=== PATIENT | male | born 1960 | race Caucasian/White ===

== ENCOUNTER → 2016-08-05 | Day surgery (SDC) | payer OTHER ==
[2016-08-02 08:18] VITALS: BMI 50.0
[~2016-08-05] VITALS: Ht 172.7 cm; Wt 148.6 kg
[~2016-08-05] MED LIST: ALBU18002 INH; CITA20TA4 PO; GLC/500 PO; INDO-24 PO; LIDOCAINE HCL 2% 2 ML VIAL (20MG/ML) ONE; LISI-461 PO; MIDAZOLAM HCL 1 MG/ML 2ML VIAL ONE; ONDANSETRON INJ 2 MG/ML 2 ML VIAL ONE; PROPOFOL IV EMULSION 10 MG/ML 20 ML VIAL IV ONE; SODIUM CHLORIDE 0.9% 500ML 500 ML IV ONE
[2016-08-05 10:50] VITALS: Ht 172.7 cm; Wt 148.6 kg
--- NOTE | 2016-08-05 11:49 | Endo History and Physical ---
History & Physical Date of Service: Aug 05, 2016. Chief Complaint: HX OF COLON POLYPS Referring Physician: DR. MCHUGH History of Present Illness H/o colon polyps Past Surgical History Hx Cardiac Surgery: No Hx Internal Defibrillator: No Hx Pacemaker: No Hx Abdominal Surgery: No Hx of Implantable Prosthesis: No Hx Post-Op Nausea and Vomiting: No Hx Cancer Surgery: No Hx Thoracic Surgery: No Hx Orthopedic: No Hx Urinary Tract Surgery: No Family History Polyp Social History Smoking Status: Former Smoker Hx Substance Use: No Hx Alcohol Use: Yes (A COUPLE BEERS/WEEK) Allergies Coded Allergies: No Known Allergies (Unverified , 08/05/16) Current Medications Reported Home Medications Medications Dose Route/Sig Max Daily Dose Days Date Category Dose Instructions Proair Respiclick (Albuterol Sulfate) 108 Mcg/Act Aer 2 Puffs INH Q4H PRN 08/02/16 Reported Indocin (Indomethacin) 50 Mg Cap 50 Mg PO TID PRN 08/02/16 Reported WITH FOOD UNTIL PAIN RESOLVES Citalopram Hydrobromide 20 Mg Tab 1 Tab PO QAM 08/02/16 Reported Zestril (Lisinopril) 10 Mg Tab 10 Mg PO QAM 08/02/16 Reported Glucophage (Metformin Hcl) 500 Mg Tab 500 Mg PO BID 08/02/16 Reported Vital Signs Weight (Kilograms): 148.64 Height (Feet): 5 Height (Inches): 8 Date Time Temp Pulse Resp B/P Pulse Ox O2 Delivery O2 Flow Rate FiO2 08/05/16 10:51 36.7 87 16 140/81 95 Room Air Physical Exam General Appearance: no apparent distress, + obese Respiratory/Chest: Auscultation: breath sounds normal Cardiovascular: Heart Auscultation: RRR Assessment and Plan Ho polyps - cscopy
--- NOTE | 2016-08-05 12:27 | GI REPORT ---
Procedure Date: 08/05/2016 11:15 AM Procedure: Colonoscopy Indications: High risk colon cancer surveillance: Personal history of colonic polyps Medicines: See the Anesthesia note for documentation of the administered medications Complications: No immediate complications. Estimated Blood Loss: Estimated blood loss: none. Procedure: Pre-Anesthesia Assessment: - ASA Grade Assessment: III - A patient with severe systemic disease. After I obtained informed consent, the scope was passed under direct vision. Throughout the procedure, the patient's blood pressure, pulse, and oxygen saturations were monitored continuously. The scope was introduced through the anus and advanced to the cecum, identified by appendiceal orifice and ileocecal valve. The colonoscopy was performed without difficulty. The patient tolerated the procedure well. The quality of the bowel preparation was good. Findings: The perianal and digital rectal examinations were normal. Multiple small and large-mouthed diverticula were found in the sigmoid colon and in the descending colon. Lipoma in ascending colon. Multiple small non bleeding AVM's in ascending colon. The exam was otherwise normal throughout the examined colon. Impression: - Diverticulosis in the sigmoid colon and in the descending colon. - Lipoma. - AVM's as colon. Recommendation: - Discharge patient to home. Repeat exam in 5 years. Arjun Arellano M.D. Arjun Arellano MD 08/05/2016 12:27:54 PM This report has been signed electronically. Note Initiated On: 08/05/2016 11:15 AM I attest to the content of the Intraoperative Record and orders documented therein, exceptions below
--- NOTE | 2016-08-05 12:28 | Discharge Instructions ---
Endoscopy Patient Instructions Date / Procedure(s) Performed Aug 05, 2016. Colonoscopy Allergy Information Coded Allergies: No Known Allergies (Unverified , 08/05/16) Discharge Date / Findings Aug 05, 2016. Diverticulosis, lipoma, AVMs Medication Instructions Stopped Medication(s): INSTRUCTED TO ONLY TAKE LISINOPRIL PRIOR TO PROCEDURE THIS MORNING. Provider Instructions Activity Restrictions - No exercising or heavy lifting for 24 hours. - Do not drink alcohol the day of the procedure. - Do not drive a car or operate machinery until the day after the procedure. - Do not make any important decisions or sign important papers in 24 hours after the procedure. Following Day: - Return to full activity which may include returning to work/school. Diet Start your diet with liquids and light foods (jello, soup, juice, toast). Then eat your usual diet if not nauseated. Treatment For Common After Affects For mild abdominal pain, bloating, or excessive gas: - Rest - Eat lightly - Lie on right side Follow-Up Information Follow-up with DR. MCHUGH as scheduled Anesthesia Information What You Should Know You have had a procedure that required some medicine to reduce anxiety and discomfort. This treatment is called moderate sedation. After receiving the treatment, you may be sleepy, but you will be able to breathe on your own. The effects of the treatment may last for several hours. Follow these instructions along with Activity/Diet recommendations noted above: * Do NOT do anything where dizziness or clumsiness would be dangerous. * Rest quietly at home today, then you can be up and about tomorrow. * Have a responsible person stay with you the rest of today. * You may have had an I.V. today. If so, you may take the dressing off later today. Recommendations Call your doctor if: * Trouble breathing * Continuous vomiting for more than 24 hours * Temperature above 101 degrees * Severe abdominal pain or bloating * Pain not relieved by pain medicine ordered * There is increased drainage or redness from any incision * A large amount of rectal bleeding greater than 2-3 tablespoons. (If you had a polyp/s removed or have hemorrhoids, a small amount of blood - from the rectum is to be expected.) * You have any unanswered questions or concerns. IN THE EVENT OF A SERIOUS EMERGENCY, GO TO THE NEAREST EMERGENCY ROOM Your discharge instructions were prepared by provider Arjun Manley. Patient Instructions Signature Page Zak Pinedo Patient (or Guardian) Signature/Date: I have read and understand the instructions given to me by my caregivers. Caregiver/RN/Doctor Signature/Date: The above-named patient and/or guardian has received patient instructions on this date. + Original Patient Signature Page (only) stays with chart. Please make copy for patient.
--- NOTE | 2016-08-05 12:32 | Anesthesiology Progress Note ---
Anesthesia Post Op Note Date & Time Aug 05, 2016 at 12:33 Vital Signs Pain Intensity: 0 Vital Signs Past 12 Hours Date Time Temp Pulse Resp B/P Pulse Ox O2 Delivery O2 Flow Rate FiO2 08/05/16 12:16 90 16 147/80 98 Room Air 08/05/16 10:51 36.7 87 16 140/81 95 Room Air Notes Mental Status: alert / awake / arousable, participated in evaluation Pt Amnestic to Procedure: Yes Nausea / Vomiting: adequately controlled Pain: adequately controlled Airway Patency, RR, SpO2: stable & adequate BP & HR: stable & adequate Hydration State: stable & adequate Anesthetic Complications: no major complications apparent
[2016-08-05 12:46] VITALS: BP 113/62; PULSE 81; O2SAT 96
== END | disposition home or self-care (01) ==
LOC: C.GI 10:35
PROVIDERS: ATTEND Internal Medicine Gastroenterology
DX: Z12.11 Encounter for screening for malignant neoplasm of colon (principal); Z86.010 Personal history of colon polyps; K57.50 Diverticulosis of both small and large intestine without perforation or abscess without bleeding; D17.79 Benign lipomatous neoplasm of other sites; K55.20 Angiodysplasia of colon without hemorrhage; Z87.891 Personal history of nicotine dependence

== ENCOUNTER → 2017-05-31 | Outpatient (CLI) | payer OTHER ==
[~2017-05-31] MED LIST changes: -LIDOCAINE HCL 2% 2 ML VIAL (20MG/ML) ONE; -MIDAZOLAM HCL 1 MG/ML 2ML VIAL ONE; -ONDANSETRON INJ 2 MG/ML 2 ML VIAL ONE; -PROPOFOL IV EMULSION 10 MG/ML 20 ML VIAL IV ONE; -SODIUM CHLORIDE 0.9% 500ML 500 ML IV ONE
--- NOTE | 2017-05-31 09:59 | DIAGNOSTIC IMAGING REPORT ---
ULTRASOUND GUIDED FINE NEEDLE ASPIRATION OF RIGHT LOBE THYROID NODULE CLINICAL HISTORY: Right lobe thyroid nodule. COMPARISON STUDY: Thyroid ultrasound April 22, 2017. PROCEDURE: Sonography of the thyroid gland demonstrated the 1.2 cm hypoechoic right lobe thyroid nodule. This was targeted for fine needle aspiration. Sonography of the right neck demonstrated a few morphologically benign cervical lymph nodes. No suspicious lymph nodes were identified within the right neck by sonography. Therefore, only the thyroid nodule was targeted. The procedure, risks and benefits were discussed with the patient including the risk of bleeding, infection and injury to adjacent structures. The patient agreed to the procedure and informed written consent was obtained. The procedure was performed by Dr. Kruger following a timeout. Skin of the neck was prepped and draped in sterile fashion and local anesthesia was achieved with 1% lidocaine. Aspiration was difficult given the depth and size of the nodule. However, the needle tip did traverse the lesion on at least 3 passes. 3 25-gauge fine needle aspirations were initially performed. The samples were obtained inadequate by pathology on preliminary review. Therefore, an additional 22-gauge fine needle aspiration using a 3 1/2 inch spinal needle was performed. The sample was also likely nondiagnostic. No additional sampling was performed given 4 passes and difficulty in biopsy. The patient tolerated the procedure well and no immediate complications were evident. IMPRESSION: Ultrasound-guided fine needle aspiration of 1.2 cm right lobe thyroid nodule. Technically difficult procedure given size and depth of the nodule. 4 fine needle aspirations performed. If final pathology is nondiagnostic, consideration could be given to follow-up sonography to ensure stability. Electronically signed by: Roland Kruger M.D. 05/31/2017 9:58 AM Dictated Date/Time: 05/31/2017 9:49 AM
== END | disposition home or self-care (01) ==
LOC: C.ULTR 05-30 09:47
DX: E04.1 Nontoxic single thyroid nodule (principal)

== ENCOUNTER 2021-02-17 20:13 | Observation (INO) ==
[2021-02-17 21:53] LABS: Basophils # (auto) 0.06 K/uL (0-0.2); Basophils % (auto) 0.5 %; Eosinophils # (auto) 0.32 K/uL (0-0.5); Eosinophils % (auto) 2.7 %; Hematocrit (blood only) 49.3 % (42-52); Hemoglobin 16.2 g/dL (14.0-18.0); Immature Granulocytes # (auto) 0.04 K/uL (0.00-0.02); Immature Granulocytes % (auto) 0.3 %; Lymphocytes # (auto) 2.72 K/uL (1.2-3.4); Lymphocytes % (auto) 22.7 %; Mean Corpuscular Hemoglobin 28.7 pg (25-34); Mean Corpuscular Hgb Conc 32.9 g/dL (32-36); Mean Corpuscular Volume 87.3 fL (80-100); Monocytes # (auto) 0.88 K/uL (0.11-0.59); Monocytes % (auto) 7.3 %; Neutrophils # (auto) 7.96 K/uL (1.4-6.5); Neutrophils % (auto) 66.5 %; Platelet Count 286 K/uL (130-400); RDW Standard Deviation 44.9 fL (36.4-46.3); Red Blood Count 5.65 M/uL (4.7-6.1); White Blood Count 11.98 K/uL (4.8-10.8)
[2021-02-17 22:04] LABS: Appearance Urine Clear (Clear); Bilirubin Urine Negative (Negative); Blood Urine Negative (Negative); Color Urine Yellow; Glucose Urine UA 2+ (Negative); Ketones Urine Negative (Negative); Leukocyte Esterase Urine Negative (Negative); Nitrite Urine Negative (Negative); Protein Urine Negative (Negative); Specific Gravity Urine 1.014 (1.000-1.030); Urobilinogen Urine Negative (Negative)
[2021-02-17] MEDS ORDERED: SODIUM CHLORIDE 0.9% 1000ML 1,000 ML IV ONE (22:04)
[2021-02-17 22:10] LABS: INR 1.1 (0.9-1.1); Partial Thromboplastin Time 27.3 Seconds (21.0-31.0); Prothrombin Time 10.9 Seconds (9.0-12.0)
[2021-02-17 22:21] LABS: Alanine Aminotransferase 38 U/L (12-78); Albumin Level 3.5 gm/dl (3.4-5.0); Aspartate Aminotransferase 56 U/L (15-37); BUN Creatinine Ratio 15.8 (10-20); Blood Urea Nitrogen 16 mg/dl (7-18); Calcium 10.1 mg/dl (8.5-10.1); Carbon Dioxide 24 mmol/L (21-32); Chloride 101 mmol/L (98-107); Creatinine Clr Calc Pharmacy 103.4 ml/min; Est GFR (African American) 90.7 ml/min; Est GFR (Non-African American) 78.2 ml/min; Glucose 218 mg/dl (70-99); Magnesium 1.8 mg/dl (1.8-2.4); Potassium 4.2 mmol/L (3.5-5.1); Sodium 133 mmol/L (136-145)
--- NOTE | 2021-02-17 22:24 | Emergency Department Note ---
History of Present Illness General Chief complaint: Altered Mental Status Stated complaint: Altered Mental Status, headache Time Seen by Provider: 02/17/21 21:58 History of Present Illness Maximum Pain Intensity: 4 This is a 60-year-old male presenting to the emergency department for evaluation of headache symptoms that turned into an episode of altered mental status. The patient is diabetic with hypertension. He states that around 5 PM he had a left-sided headache and he laid down for about 1 to 2 hours. When he awoke he had difficulty with speech and understanding his . The patient was able to move extremities at this time and did not have any obvious facial drooping or extremity weakness according to the . The patient then came to the ER for evaluation of his symptoms. His symptoms slowly have improved upon arrival to the ER, and now he is able to speak and understand conversations. The patient still has a very minimal headache, that is also significantly improved. He has had intermittent migraines in the past, but this seems different to his normal symptoms. He does not have any significant family history of stroke or TIA. He is not on blood thinners. He rates his current discomfort a 4/10. The patient is known to me from outside the hospital, and he does appear at his baseline mental status. Home Medications Medication Instructions Recorded Confirmed Type lisinopril 10 mg tablet 10 mg PO QAM 06/13/18 02/17/21 History escitalopram oxalate 10 mg tablet 10 mg PO QAM 02/17/21 02/17/21 History metformin 1,000 mg tablet 1,000 mg PO BIDM 02/17/21 02/17/21 History aspirin 81 mg tablet,delayed 81 mg PO QAM #30 tab 02/19/21 Rx release atorvastatin 40 mg tablet 40 mg PO QAM #30 tab 02/19/21 Rx clopidogrel 75 mg tablet 75 mg PO QAM 30 Days #30 tab 02/19/21 Rx Allergies Allergy/AdvReac Type Severity Reaction Status Date / Time No Known Allergies Allergy Verified 02/17/21 20:51 Past Med/Surg History Medical History (Updated 02/19/21 @ 21:03 by Esteban Teran PA-C) Attention deficit disorder (ADD) Diabetes mellitus, type 2 NIDDM Gout Hyperlipidemia Hypertension Sleep apnea CPAP Thyroid nodule MONITORING Surgical History History of colonoscopy History of tooth extraction Family History Father Family history of diabetes mellitus Grandmother (Paternal) Family history of diabetes mellitus Social History Smoking Status: Never smoker Second Hand Exposure: Yes ( A CHILD); Do You Dip or Chew Tobacco: No; Hx Alcohol Use: No Hx Substance Use: No Preferred Language: Faroese Communication Ability: Effective Exceptional Student Education Aide Required: No Beliefs That Will Affect Care: None Current Living Situation: Spouse and Family Other Information That Helps Us Care for You: No Feels Safe at Home: Yes Assistive Devices: None Review of Systems A total of 10 systems reviewed and were otherwise negative Physical Exam Vital Signs Vital Signs - 24 hr 02/17/21 20:22 02/17/21 20:51 02/17/21 21:45 Temperature 37.0 C Temperature Source Temporal Artery Scan Pulse Rate 104 H Pulse Rate [Apical] 102 H Respiratory Rate 16 18 Respiratory Effort / Characteristics Non-Labored Spontaneous Non-Labored Respiratory Depth Normal Blood Pressure 162/95 H Blood Pressure [Right Arm] 166/105 H 152/87 H Blood Pressure Mean 117 Blood Pressure Mean [Right Arm] 125 108 Blood Pressure Position Sitting Blood Pressure Position [Right Arm] Lying Pulse Oximetry 96 95 Oxygen Delivery Method Room Air Room Air Sepsis Recent Fever Within 48 Hours No Sepsis New/Unexplained Change in Mental Status N/A Sepsis Action Taken by Nursing No Action Required 02/17/21 21:46 Temperature Temperature Source Pulse Rate Pulse Rate [Apical] Respiratory Rate Respiratory Effort / Characteristics Respiratory Depth Blood Pressure Blood Pressure [Right Arm] Blood Pressure Mean Blood Pressure Mean [Right Arm] Blood Pressure Position Blood Pressure Position [Right Arm] Pulse Oximetry 95 Oxygen Delivery Method Room Air Sepsis Recent Fever Within 48 Hours Sepsis New/Unexplained Change in Mental Status Sepsis Action Taken by Nursing VITALS: Vitals are noted on the nurse's note and reviewed by myself. Vital signs stable. GENERAL: Well-developed, well-nourished, white male, who is in no acute distress and resting comfortably. Patient is cooperative with the examination. HEAD: Normocephalic atraumatic. No facial droop. EYES: Pupils equal round and reactive to light and accommodation. Conjunctivae without injection, sclerae without icterus. Extraocular movements intact. NOSE: Patent, turbinates without inflammation or discharge. HEART: Regular rate and rhythm without murmurs gallops or rubs. LUNGS: Clear to auscultation bilaterally without wheezes, rales or rhonchi. No retractions or accessory muscle use. ABDOMEN: Positive normal bowel sounds x 4. Soft, nontender, without masses or organomegaly. No guarding or rebound tenderness. MUSCULOSKELETAL: No muscle atrophy, erythema, or edema noted. Full range of motion in all extremities. No tenderness to palpation. NEURO: Patient was alert and oriented to person place and time. CN II through XII grossly intact. No focal neurological deficits. Deep tendon reflexes 2+ throughout. GCS 15. SKIN: The skin was without rashes, erythema, edema, or bruising. Capillary refill less than 2 seconds. Course Administered Medications Discontinued Medications Aspirin (Aspirin Chew 324 Mg) 324 mg PO NOW [facility] Stop: 02/18/21 01:28 Last Admin: 02/18/21 02:07 Dose: 324 mg Documented by: [id number] Aspirin (Aspirin 81 Mg Ectab) 81 mg PO [facility] Stop: 03/21/21 08:59 Last Admin: 02/19/21 08:30 Dose: 81 mg Documented by: [id number] Admin: 02/18/21 10:40 Dose: 81 mg Documented by: [id number] Atorvastatin Calcium (Atorvastatin 40 Mg Tab) 40 mg PO [facility] Stop: 03/21/21 09:44 Last Admin: 02/19/21 10:33 Dose: 40 mg Documented by: [id number] Clopidogrel Bisulfate (Clopidogrel Bisulfate 75 Mg Tab) 75 mg PO [facility] Stop: 03/21/21 09:44 Last Admin: 02/19/21 10:33 Dose: 75 mg Documented by: [id number] Enoxaparin Sodium (Enoxaparin Inj 40 Mg/0.4 Ml Syr) 40 mg SQ [facility] Stop: 03/20/21 08:59 Last Admin: 02/19/21 08:30 Dose: 40 mg Documented by: [id number] Admin: 02/18/21 08:31 Dose: 40 mg Documented by: [id number] Escitalopram Oxalate (Escitalopram Oxalate 10 Mg Tab) 10 mg PO [facility] Stop: 03/20/21 08:59 Last Admin: 02/19/21 08:30 Dose: 10 mg Documented by: [id number] Admin: 02/18/21 08:33 Dose: 10 mg Documented by: [id number] Sodium Chloride (Nss 1000ml) 1,000 mls @ 999 mls/hr IV .[id number] ONE Stop: 02/17/21 23:04 Last Infusion: 02/17/21 23:34 Dose: 0 mls/hr Documented by: [id number] Admin: 02/17/21 22:33 Dose: 999 mls/hr Documented by: [id number] Sodium Chloride (Nss 1000ml) 1,000 mls @ 75 mls/hr IV .[id number] ONE Stop: 02/18/21 14:55 Last Infusion: 02/18/21 16:51 Dose: 0 mls/hr Documented by: [id number] Admin: 02/18/21 02:09 Dose: 75 mls/hr Documented by: [id number] Lorazepam (Ativan) 0.5 mg in 1 mls @ 1 mls/min IV Q1H PRN PRN Reason: Anxiety/Agitation Stop: 03/20/21 03:23 Last Admin: 02/18/21 05:58 Dose: 1 mls/min Documented by: [id number] Insulin Aspart (Insulin Aspart 100 Units/Ml 3 Ml Pen) 0 units SC ACHS [facility] Stop: 03/20/21 03:59 Last Admin: 02/19/21 12:32 Dose: 7 units Documented by: [id number] Cosigned by: [id number] Admin: 02/19/21 08:33 Dose: 6 units Documented by: [id number] Cosigned by: [id number] Admin: 02/18/21 20:59 Dose: 3 units Documented by: [id number] Cosigned by: [id number] Admin: 02/18/21 18:11 Dose: 7 units Documented by: [id number] Cosigned by: [id number] Admin: 02/18/21 12:32 Dose: 7 units Documented by: [id number] Cosigned by: [id number] Admin: 02/18/21 08:36 Dose: 6 units Documented by: [id number] Cosigned by: [id number] Admin: 02/18/21 04:23 Dose: 3 units Documented by: [id number] Cosigned by: [id number] Insulin Glargine (Insulin Glargine Solostar 100 Units/Ml 3 Ml Pen) 5 units SC NOW STA Stop: 02/18/21 01:31 Last Admin: 02/18/21 02:07 Dose: 5 units Documented by: [id number] Cosigned by: [id number] Insulin Glargine (Insulin Glargine Solostar 100 Units/Ml 3 Ml Pen) 15 units SQ NOW ONE Stop: 02/18/21 20:01 Last Admin: 02/18/21 20:58 Dose: 15 units Documented by: [id number] Cosigned by: [id number] Ioversol (Optiray 320 125ml) 117 ml IV ONCE ONE Stop: 02/17/21 22:42 Last Admin: 02/17/21 22:41 Dose: 117 ml Documented by: [id number] Medical Decision Making Differential Diagnosis Differential includes acute coronary syndrome, myocardial infarction, CVA, TIA, anemia, infection, pneumonia, UTI, pyelonephritis, poor nutrition, dehydration, electrolyte disturbance,hypoglycemia, and others Laboratory Data Result diagrams: 02/18/21 07:30 02/18/21 07:30 Lab Results 02/17/21 02/17/21 02/17/21 Range/Units 20:59 21:42 21:42 WBC 11.98 H (4.8-10.8) K/uL RBC 5.65 (4.7-6.1) M/uL Hgb 16.2 (14.0-18.0) g/dL Hct 49.3 (42-52) % MCV 87.3 (80-100) fL MCH 28.7 (25-34) pg MCHC 32.9 (32-36) g/dL RDW Std Deviation 44.9 (36.4-46.3) fL RDW Coeff of Sp 14.0 (11.5-14.5) % Plt Count 286 (130-400) K/uL MPV 12.0 H (7.4-10.4) fL Immature Gran % (Auto) 0.3 % Neut % (Auto) 66.5 % Lymph % (Auto) 22.7 % Evans % (Auto) 7.3 % Eos % (Auto) 2.7 % Baso % (Auto) 0.5 % Neut # (Auto) 7.96 H (1.4-6.5) K/uL Lymph # (Auto) 2.72 (1.2-3.4) K/uL Evans # (Auto) 0.88 H (0.11-0.59) K/uL Eos # (Auto) 0.32 (0-0.5) K/uL Baso # (Auto) 0.06 (0-0.2) K/uL Immature Gran # (Auto) 0.04 H (0.00-0.02) K/uL PT 10.9 (9.0-12.0) Seconds INR 1.1 (0.9-1.1) APTT 27.3 (21.0-31.0) Seconds PTT Ratio 1.0 Sodium (136-145) mmol/L Potassium (3.5-5.1) mmol/L Chloride (98-107) mmol/L Carbon Dioxide (21-32) mmol/L Anion Gap (3-11) BUN (7-18) mg/dl Creatinine (0.6-1.4) mg/dl Est Cr Clr Drug Dosing ml/min Est GFR ( Amer) ml/min Est GFR (Non-Af Amer) ml/min BUN/Creatinine Ratio (10-20) Glucose (70-99) mg/dl POC Glucose 229 H (70-99) mg/dl Estimat Average Glucose mg/dl Hemoglobin A1c (4.5-5.6) % Calcium (8.5-10.1) mg/dl Magnesium (1.8-2.4) mg/dl Total Bilirubin (0.2-1) mg/dl AST (15-37) U/L ALT (12-78) U/L Alkaline Phosphatase (45-117) U/L Troponin I (0-0.045) ng/ml Total Protein (6.4-8.2) gm/dl Albumin (3.4-5.0) gm/dl Globulin (2.5-4.0) gm/dl Albumin/Globulin Ratio (0.9-2) TSH (0.300-4.500) uIu/ml Specimen Hemolysis Urine Color Urine Appearance (Clear) Urine pH (4.5-7.5) Ur Specific [place] (1.000-1.030) Urine Protein (Negative) Urine Glucose (UA) (Negative) Urine Ketones (Negative) Urine Blood (Negative) Urine Nitrite (Negative) Urine Bilirubin (Negative) Urine Urobilinogen (Negative) Ur Leukocyte Esterase (Negative) Lyme Disease IgG Ab (Negative) Lyme Disease IgM Ab (Negative) COVID-19 Eval Order SARS-CoV-2 (PCR) (Negative) 02/17/21 02/17/21 02/17/21 Range/Units 21:42 21:42 21:42 WBC (4.8-10.8) K/uL RBC (4.7-6.1) M/uL Hgb (14.0-18.0) g/dL Hct (42-52) % MCV (80-100) fL MCH (25-34) pg MCHC (32-36) g/dL RDW Std Deviation (36.4-46.3) fL RDW Coeff of Sp (11.5-14.5) % Plt Count (130-400) K/uL MPV (7.4-10.4) fL Immature Gran % (Auto) % Neut % (Auto) % Lymph % (Auto) % Evans % (Auto) % Eos % (Auto) % Baso % (Auto) % Neut # (Auto) (1.4-6.5) K/uL Lymph # (Auto) (1.2-3.4) K/uL Evans # (Auto) (0.11-0.59) K/uL Eos # (Auto) (0-0.5) K/uL Baso # (Auto) (0-0.2) K/uL Immature Gran # (Auto) (0.00-0.02) K/uL PT (9.0-12.0) Seconds INR (0.9-1.1) APTT (21.0-31.0) Seconds PTT Ratio Sodium 133 L (136-145) mmol/L Potassium 4.2 (3.5-5.1) mmol/L Chloride 101 (98-107) mmol/L Carbon Dioxide 24 (21-32) mmol/L Anion Gap 8.0 (3-11) BUN 16 (7-18) mg/dl Creatinine 1.04 (0.6-1.4) mg/dl Est Cr Clr Drug Dosing 103.4 ml/min Est GFR ( Amer) 90.7 ml/min Est GFR (Non-Af Amer) 78.2 ml/min BUN/Creatinine Ratio 15.8 (10-20) Glucose 218 H (70-99) mg/dl POC Glucose (70-99) mg/dl Estimat Average Glucose 235 mg/dl Hemoglobin A1c 9.8 H (4.5-5.6) % Calcium 10.1 (8.5-10.1) mg/dl Magnesium 1.8 (1.8-2.4) mg/dl Total Bilirubin 0.3 (0.2-1) mg/dl AST 56 H (15-37) U/L ALT 38 (12-78) U/L Alkaline Phosphatase 139 H (45-117) U/L Troponin I < 0.015 (0-0.045) ng/ml Total Protein 7.9 (6.4-8.2) gm/dl Albumin 3.5 (3.4-5.0) gm/dl Globulin 4.4 H (2.5-4.0) gm/dl Albumin/Globulin Ratio 0.8 L (0.9-2) TSH 2.840 (0.300-4.500) uIu/ml Specimen Hemolysis Urine Color Yellow Urine Appearance Clear (Clear) Urine pH 5.0 (4.5-7.5) Ur Specific [place] 1.014 (1.000-1.030) Urine Protein Negative (Negative) Urine Glucose (UA) 2+ H (Negative) Urine Ketones Negative (Negative) Urine Blood Negative (Negative) Urine Nitrite Negative (Negative) Urine Bilirubin Negative (Negative) Urine Urobilinogen Negative (Negative) Ur Leukocyte Esterase Negative (Negative) Lyme Disease IgG Ab (Negative) Lyme Disease IgM Ab (Negative) COVID-19 Eval Order SARS-CoV-2 (PCR) (Negative) 02/17/21 02/17/21 02/17/21 Range/Units 22:24 22:26 22:26 WBC (4.8-10.8) K/uL RBC (4.7-6.1) M/uL Hgb (14.0-18.0) g/dL Hct (42-52) % MCV (80-100) fL MCH (25-34) pg MCHC (32-36) g/dL RDW Std Deviation (36.4-46.3) fL RDW Coeff of Sp (11.5-14.5) % Plt Count (130-400) K/uL MPV (7.4-10.4) fL Immature Gran % (Auto) % Neut % (Auto) % Lymph % (Auto) % Evans % (Auto) % Eos % (Auto) % Baso % (Auto) % Neut # (Auto) (1.4-6.5) K/uL Lymph # (Auto) (1.2-3.4) K/uL Evans # (Auto) (0.11-0.59) K/uL Eos # (Auto) (0-0.5) K/uL Baso # (Auto) (0-0.2) K/uL Immature Gran # (Auto) (0.00-0.02) K/uL PT (9.0-12.0) Seconds INR (0.9-1.1) APTT (21.0-31.0) Seconds PTT Ratio Sodium (136-145) mmol/L Potassium (3.5-5.1) mmol/L Chloride (98-107) mmol/L Carbon Dioxide (21-32) mmol/L Anion Gap (3-11) BUN (7-18) mg/dl Creatinine (0.6-1.4) mg/dl Est Cr Clr Drug Dosing ml/min Est GFR ( Amer) ml/min Est GFR (Non-Af Amer) ml/min BUN/Creatinine Ratio (10-20) Glucose (70-99) mg/dl POC Glucose (70-99) mg/dl Estimat Average Glucose mg/dl Hemoglobin A1c (4.5-5.6) % Calcium (8.5-10.1) mg/dl Magnesium (1.8-2.4) mg/dl Total Bilirubin (0.2-1) mg/dl AST (15-37) U/L ALT (12-78) U/L Alkaline Phosphatase (45-117) U/L Troponin I (0-0.045) ng/ml Total Protein (6.4-8.2) gm/dl Albumin (3.4-5.0) gm/dl Globulin (2.5-4.0) gm/dl Albumin/Globulin Ratio (0.9-2) TSH (0.300-4.500) uIu/ml Specimen Hemolysis Urine Color Urine Appearance (Clear) Urine pH (4.5-7.5) Ur Specific [place] (1.000-1.030) Urine Protein (Negative) Urine Glucose (UA) (Negative) Urine Ketones (Negative) Urine Blood (Negative) Urine Nitrite (Negative) Urine Bilirubin (Negative) Urine Urobilinogen (Negative) Ur Leukocyte Esterase (Negative) Lyme Disease IgG Ab Negative (Negative) Lyme Disease IgM Ab Negative (Negative) COVID-19 Eval Order Covid19 at [facility] SARS-CoV-2 (PCR) NEGATIVE (Negative) Imaging Data Radiologist's Impression: Head CT 02/17/21 22:[address] DOSE: HISTORY: Stroke like symptoms. TECHNIQUE: Multiaxial CT images of the head were performed without the use of intravenous contrast. Automated exposure control was utilized for this study. A dose lowering technique was utilized adhering to the principles of ALARA. Comparison: None. Findings: Mild mucosal thickening within the maxillary sinuses. The mastoid air cells are clear. The calvarium and skull base are intact. The ventricles and sulci are within normal limits. There is no mass, hematoma, midline shift, or acute infarct. Impression: No acute intracranial abnormality. ACT 112: Negative or not required by law. Electronically signed by: Hilario Peters M.D. 02/18/2021 7:11 AM Head CTA 02/17/21 22:07 HEAD & NECK CTA HISTORY: Stroke Like Symptoms TECHNIQUE: Multiaxial CT images of the head were performed following the intravenous administration of contrast to evaluate the major cerebral vessels. Multiaxial CT images of the neck were also performed following the intravenous administration of contrast to evaluate the major cervical vessels. Maximum intensity projection images were also obtained. A dose lowering technique was utilized adhering to the principles of ALARA. COMPARISON: None. FINDINGS: There is no mass, hematoma, midline shift, or acute infarct. Visualized intracranial internal carotid arteries, distal vertebral arteries, and basilar artery are widely patent. There is no significant stenosis, occlusion, or aneurysm seen within the bilateral ACAs, MCAs, or motorcycle sales associate. The major dural venous sinuses are patent. Mild calcified plaque within the bilateral carotid siphons. The aortic arch and proximal great vessels are widely patent. There is no significant stenosis, occlusion, or dissection identified within the bilateral common carotid, internal carotid, or vertebral arteries. IMPRESSION: 1. No significant stenosis, occlusion, or aneurysm within the [place]. 2. No significant stenosis, occlusion, or dissection identified within the carotid or vertebral arteries. ACT 112: Negative or not required by law. Electronically signed by: Hilario Peters M.D. 02/18/2021 7:16 AM Neck CTA 02/17/21 22:07 HEAD & NECK CTA HISTORY: Stroke Like Symptoms TECHNIQUE: Multiaxial CT images of the head were performed following the intravenous administration of contrast to evaluate the major cerebral vessels. Multiaxial CT images of the neck were also performed following the intravenous administration of contrast to evaluate the major cervical vessels. Maximum intensity projection images were also obtained. A dose lowering technique was utilized adhering to the principles of ALARA. COMPARISON: None. FINDINGS: There is no mass, hematoma, midline shift, or acute infarct. Visualized intracranial internal carotid arteries, distal vertebral arteries, and basilar artery are widely patent. There is no significant stenosis, occlusion, or aneur ysm seen within the bilateral ACAs, MCAs, or motorcycle sales associate. The major dural venous sinuses are patent. Mild calcified plaque within the bilateral carotid siphons. The aortic arch and proximal great vessels are widely patent. There is no significant stenosis, occlusion, or dissection identified within the bilateral common carotid, internal carotid, or vertebral arteries. IMPRESSION: 1. No significant stenosis, occlusion, or aneurysm within the [place]. 2. No significant stenosis, occlusion, or dissection identified within the carotid or vertebral arteries. ACT 112: Negative or not required by law. Electronically signed by: Hilario Peters M.D. 02/18/2021 7:16 AM ECG Data Attestation: I personally reviewed and interpreted this ECG as follows: Additional Comments: Sinus rhythm with 1st degree A-V block @[address] elevation Otherwise normal ECG When compared with ECG of 28-MAR-2010 00:47, No significant change was found MDM Narrative Physical exam and history were performed. Nursing notes, EMR, and Medication List were personally reviewed. Patient appears to have an episode of aphasia around the time of headache symptoms. Symptoms have now improved upon arrival to the ER. IV access was established and labs were obtained. The patient was hydrated with normal saline sent to CT scan for further imaging. An order was placed for continuous cardiac monitoring. The monitor shows a rate of 80 with normal sinus rhythm. The patient's blood work is as above and was reviewed. The patient does not have a significantly elevated white blood cell count, gross anemia, bandemia, or significant electrolyte imbalance. INR is 1.1. Troponin x1 is negative. Transaminases are not diagnostic. Glucose is elevated but not indicative of DKA. TSH shows euthyroid state. Urine is with glucose but no evidence of infection. Lyme and Covid are negative. CT/CTA of the head and neck were performed and do not show obvious acute process per my and radiology interpretation. The patient remained in stable condition throughout his ER stay and did not have any return or worsening of symptoms. The patient does have multiple comorbidities and it is difficult to exclude TIA versus atypical migraine true pan. I did voice my concerns with the patient, and he is comfortable with staying in the hospital for further management. The case was discussed with the on-call hospitalist who agreed to evaluate him here in the department. Please see their dictation for further patient course, plan, and disposition. The chart was completed utilizing [employer] Speech Voice Recognition Software. Grammatical errors, random word insertions, pronoun errors, and incomplete sentences are an occasional consequence of this system due to software limitations, ambient noise, and hardware issues. Any formal questions or concerns about the content, text, or information contained within the body of this dictation should be directly addressed to the provider for clarification. . Impression & Plan Altered mental status, Aphasia, Headache Discharge Plan Visit Data Chief Complaint: Altered Mental Status Stated Complaint: Altered Mental Status, headache ED Provider: Solis Enriquez ED Midlevel Provider: Esteban Teran Discharge Problem: Altered mental status, Aphasia, Headache Patient Disposition: Admitted As Inpatient Discharge Instructions Interventions: ED Discharge Assessment Last Done: 02/18/21 02:28
[2021-02-17 22:29] LABS: Albumin Globulin Ratio 0.8 (0.9-2); Alkaline Phosphatase 139 U/L (45-117); Bilirubin,Total 0.3 mg/dl (0.2-1); Globulin 4.4 gm/dl (2.5-4.0); Total Protein 7.9 gm/dl (6.4-8.2); Troponin I < 0.015 ng/ml (0-0.045)
[2021-02-17] MEDS ORDERED: OPTIRAY 320 125ml IV ONE (22:41)
[2021-02-17 23:26] LABS: Lyme Ab IgG w/WB Rflx Negative (Negative); Lyme Ab IgM w/WB Rflx Negative (Negative)
[2021-02-18] MEDS ORDERED: ASPIRIN CHEW 324 MG PO STA (01:27)
--- NOTE | 2021-02-18 01:28 | History & Physical Report ---
Date of Service February 18, 2021 Assessment & Plan (1) Aphasia: Plan: Transient symptoms TIA given risk factors/old CVA on CAT scan versus complicated migraine given headache complaints hypertension, slight elevated DM2 on oral meds, suboptimal control as of recent hemoglobin A1c of 7.01 April 2020 NILSA on CPAP ADD, mood disorder. Patient stopped Adderall about a week ago. Patient psychiatrist contemplating alternative medication that would be covered by [facility] insurance. OBS Medical telemetry Neurochecks Aspirin for secondary stroke prevention Permissive hypertension until stroke ruled out MRI brain, TTE, lipid profile for stroke work-up Neurology consult Re: Transient aphasia Basal insulin, ISS BG goal 1 10-1 40, carb count coverage, update hemoglobin A1c DVT prophylaxis with Lovenox subcu Full code Patient's requesting update providers. Ms. Brit Pinedo, contact #[phone]. Text document was generated using Comic Reply voice recognition software. It may contain grammatical or spelling errors. Kindly contact undersigned for clarification of any documentation item in question. History of Present Illness Chief Complaint: Headache, trouble getting words out Primary Care Provider: Jann Delgado, History obtained from patient, family, and records. Medical history significant for hypertension, DM2 on oral meds, NILSA on CPAP, migraine, ADD, mood disorder. Yesterday afternoon patient noted achy left-sided headache symptoms somewhat different from usual migraine attack. Patient felt dazed. Computer images look different as per patient. Patient had trouble getting words out. No prior episodes. Usual migraine attacks associated with bright lights about 2 times a year in frequency in the last 10 years. Usual precipitant is stress and fatigue. Migraine attacks go away with rest as per patient. Patient denies chest pain, S OB. Improved symptoms upon arrival at the ER. 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 Allergies Allergy/AdvReac Type Severity Reaction Status Date / Time No Known Allergies Allergy Verified 02/17/21 20:51 Home Medications Medication Instructions Recorded Confirmed Type lisinopril 10 mg tablet 10 mg PO QAM 06/13/18 02/17/21 History escitalopram oxalate 10 mg tablet 10 mg PO QAM 02/17/21 02/17/21 History metformin 1,000 mg tablet 1,000 mg PO BIDM 02/17/21 02/17/21 History Past Med/Surg History Medical History (Updated 02/18/21 @ 03:59 by Darien Blanc MD) Attention deficit disorder (ADD) Diabetes mellitus, type 2 NIDDM Gout Hyperlipidemia Hypertension Sleep apnea CPAP Thyroid nodule MONITORING Surgical History History of colonoscopy History of tooth extraction Family History Father Family history of diabetes mellitus Grandmother (Paternal) Family history of diabetes mellitus Social History Smoking Status: Never smoker Second Hand Exposure: Yes ( A CHILD); Do You Dip or Chew Tobacco: No; Hx Alcohol Use: No Hx Substance Use: No Preferred Language: Namibian Communication Ability: Effective Neighborhood Worker Required: No Beliefs That Will Affect Care: None Current Living Situation: Spouse and Family Other Information That Helps Us Care for You: No Feels Safe at Home: Yes Assistive Devices: None Review of Systems Review of Systems: As per HPI, all 10 systems reviewed, all other ROS negative Physical Exam Physical Exam: GENERAL: Comfortable, pleasant, morbidly obese, no respiratory distress SKIN: Normal color, warm HEENT: Alopecia, Artesian palpebral conjunctivae, no ptosis, moist buccal mucosa NECK : Supple, short neck, no tenderness CHEST : CTA, no tenderness HEART : RRR, no obvious murmurs ABDOMEN: distention, nontender EXTREMITIES : No LE swelling/tenderness, no other conspicuous deformities noted NEUROLOGIC : Coherent, no facial asymmetry, no other gross focality Results & Data Results & Data ([facility]) Vital Signs (Past 12 Hours) Vital Signs Temp Pulse Pulse Resp BP BP Pulse Ox 02/18/21 00:15 87 16 127/78 93 02/17/21 21:46 95 02/17/21 21:45 152/87 H 02/17/21 20:51 102 H 18 166/105 H 95 02/17/21 20:22 37.0 C 104 H 16 162/95 H 96 Laboratory Results Laboratory Results WBC 11.98 K/uL (4.8-10.8) H 02/17/21 21:42 RBC 5.65 M/uL (4.7-6.1) 02/17/21 21:42 Hgb 16.2 g/dL (14.0-18.0) 02/17/21 21:42 Hct 49.3 % (42-52) 02/17/21 21:42 MCV 87.3 fL (80-100) 02/17/21 21:42 MCH 28.7 pg (25-34) 02/17/21 21:42 MCHC 32.9 g/dL (32-36) 02/17/21 21:42 RDW Std Deviation 44.9 fL (36.4-46.3) 02/17/21 21:42 RDW Coeff of Sp 14.0 % (11.5-14.5) 02/17/21 21:42 Plt Count 286 K/uL (130-400) 02/17/21 21:42 MPV 12.0 fL (7.4-10.4) H 02/17/21 21:42 Immature Gran % (Auto) 0.3 % 02/17/21 21:42 Neut % (Auto) 66.5 % 02/17/21 21:42 Lymph % (Auto) 22.7 % 02/17/21 21:42 Stearns % (Auto) 7.3 % 02/17/21 21:42 Eos % (Auto) 2.7 % 02/17/21 21:42 Baso % (Auto) 0.5 % 02/17/21 21:42 Neut # (Auto) 7.96 K/uL (1.4-6.5) H 02/17/21 21:42 Lymph # (Auto) 2.72 K/uL (1.2-3.4) 02/17/21 21:42 Stearns # (Auto) 0.88 K/uL (0.11-0.59) H 02/17/21 21:42 Eos # (Auto) 0.32 K/uL (0-0.5) 02/17/21 21:42 Baso # (Auto) 0.06 K/uL (0-0.2) 02/17/21 21:42 Immature Gran # (Auto) 0.04 K/uL (0.00-0.02) H 02/17/21 21:42 PT 10.9 Seconds (9.0-12.0) 02/17/21 21:42 INR 1.1 (0.9-1.1) 02/17/21 21:42 APTT 27.3 Seconds (21.0-31.0) 02/17/21 21:42 PTT Ratio 1.0 02/17/21 21:42 Sodium 133 mmol/L (136-145) L 02/17/21 21:42 Potassium 4.2 mmol/L (3.5-5.1) 02/17/21 21:42 Chloride 101 mmol/L (98-107) 02/17/21 21:42 Carbon Dioxide 24 mmol/L (21-32) 02/17/21 21:42 Anion Gap 8.0 (3-11) 02/17/21 21:42 BUN 16 mg/dl (7-18) 02/17/21 21:42 Creatinine 1.04 mg/dl (0.6-1.4) 02/17/21 21:42 Est Cr Clr Drug Dosing 103.4 ml/min 02/17/21 21:42 Est GFR ( Amer) 90.7 ml/min 02/17/21 21:42 Est GFR (Non-Af Amer) 78.2 ml/min 02/17/21 21:42 BUN/Creatinine Ratio 15.8 (10-20) 02/17/21 21:42 Glucose 218 mg/dl (70-99) H 02/17/21 21:42 POC Glucose 229 mg/dl (70-99) H 02/17/21 20:59 Calcium 10.1 mg/dl (8.5-10.1) 02/17/21 21:42 Magnesium 1.8 mg/dl (1.8-2.4) 02/17/21 21:42 Total Bilirubin 0.3 mg/dl (0.2-1) 02/17/21 21:42 AST 56 U/L (15-37) H 02/17/21 21:42 ALT 38 U/L (12-78) 02/17/21 21:42 Alkaline Phosphatase 139 U/L (45-117) H 02/17/21 21:42 Troponin I < 0.015 ng/ml (0-0.045) 02/17/21 21:42 Total Protein 7.9 gm/dl (6.4-8.2) 02/17/21 21:42 Albumin 3.5 gm/dl (3.4-5.0) 02/17/21 21:42 Globulin 4.4 gm/dl (2.5-4.0) H 02/17/21 21:42 Albumin/Globulin Ratio 0.8 (0.9-2) L 02/17/21 21:42 TSH 2.840 uIu/ml (0.300-4.500) 02/17/21 21:42 Specimen Hemolysis 02/17/21 21:42 Urine Color Yellow 02/17/21 21:42 Urine Appearance Clear (Clear) 02/17/21 21:42 Urine pH 5.0 (4.5-7.5) 02/17/21 21:42 Ur Specific [place] 1.014 (1.000-1.030) 02/17/21 21:42 Urine Protein Negative (Negative) 02/17/21 21:42 Urine Glucose (UA) 2+ (Negative) H 02/17/21 21:42 Urine Ketones Negative (Negative) 02/17/21 21:42 Urine Blood Negative (Negative) 02/17/21 21:42 Urine Nitrite Negative (Negative) 02/17/21 21:42 Urine Bilirubin Negative (Negative) 02/17/21 21:42 Urine Urobilinogen Negative (Negative) 02/17/21 21:42 Ur Leukocyte Esterase Negative (Negative) 02/17/21 21:42 Lyme Disease IgG Ab Negative (Negative) 02/17/21 22:24 Lyme Disease IgM Ab Negative (Negative) 02/17/21 22:24 COVID-19 Eval Order Covid19 at [facility] 02/17/21 22:26 SARS-CoV-2 (PCR) NEGATIVE (Negative) 02/17/21 22:[address] head initial read: Mild volume loss. Old left basal ganglia lacunar infarct. No mass, hemorrhage or acute infarct. No acute findings. CTA head initial read: Minimal atherosclerosis of the cavernous carotids. MCAs and ACAs are intact. The vertebrals, basilar and the cda teacher are intact. No acute findings. CTA neck initial read: Aortic arch intact. Right carotids intact. Left carotids are intact. Vertebral arteries are intact. Upper lung espinosa are clear. No acute findings. EKG as per my interpretation : Rate 90, NSR, LAD, LAFB, 1 AVB, no ischemia
[2021-02-18] MEDS ORDERED: INSULIN GLARGINE SOLOSTAR 100 UNITS/ML 3 ML PEN SC STA (01:30)
[2021-02-18] MEDS ORDERED: SODIUM CHLORIDE 0.9% 1000ML 1,000 ML IV ONE (01:36)
[2021-02-18] MEDS ORDERED: CARBOHYDRATES FOR HYPOGLYCEMIA PO PRN (03:24)
[2021-02-18] MEDS ORDERED: ACETAMINOPHEN 325 MG TAB PO PRN (03:24)
[2021-02-18] MEDS ORDERED: LORazepam 0.5 MG/1 ML VIAL IV PRN (03:24)
[2021-02-18] MEDS ORDERED: DEXTROSE 50% 50 ML SYRINGE IV PRN (03:24)
[2021-02-18] MEDS ORDERED: GLUCAGON FOR INJ 1 MG VIAL SQ PRN (03:24)
[2021-02-18] MEDS ORDERED: PROMETHAZINE HCL 12.5 MG in SODIUM CHLORIDE 0.9% 50 ML IV PRN (03:24)
[2021-02-18] MEDS ORDERED: traMADol HCL 50 MG TABLET PO PRN (03:24)
[2021-02-18] MEDS ORDERED: GLUCOSE 40% GEL 15 GM TUBE PO PRN (03:24)
[2021-02-18] MEDS ORDERED: GLUCOSE 10 TABS/TUBE PO PRN (03:24)
[2021-02-18] MEDS: INSULIN ASPART 100 UNITS/ML 3 ML PEN SC SCH ×5 (04:23→20:59)
--- NOTE | 2021-02-18 07:13 | CT Scan Report ---
HEAD CT NONCONTRAST CT DOSE: HISTORY: Stroke like symptoms. TECHNIQUE: Multiaxial CT images of the head were performed without the use of intravenous contrast. A utomated exposure control was utilized for this study. A dose lowering technique was utilized adheri ng to the principles of ALARA. Comparison: None. Findings: Mild mucosal thickening within the maxillary sinuses. The mastoid air cells are clear. The calvarium and skull base are intact. The ventricles and sulci are within normal limits. There is no m ass, hematoma, midline shift, or acute infarct. Impression: No acute intracranial abnormality. ACT 112: Negative or not required by law. Electronically signed by: Hilario Peters M.D. 02/18/2021 7:11 AM
--- NOTE | 2021-02-18 07:17 | CT Scan Report ---
HEAD & NECK CTA HISTORY: Stroke Like Symptoms TECHNIQUE: Multiaxial CT images of the head were performed following the intravenous administration o f contrast to evaluate the major cerebral vessels. Multiaxial CT images of the neck were also perform ed following the intravenous administration of contrast to evaluate the major cervical vessels. Maxim um intensity projection images were also obtained. A dose lowering technique was utilized adhering to the principles of ALARA. COMPARISON: None. FINDINGS: There is no mass, hematoma, midline shift, or acute infarct. Visualized intracranial internal carotid arteries, distal vertebral arteries, and basilar artery are widely patent. There is no significant s tenosis, occlusion, or aneurysm seen within the bilateral ACAs, MCAs, or hypo dipper. The major dural venous sinuses are patent. Mild calcified plaque within the bilateral carotid siphons. The aortic arch and proximal great vessels are widely patent. There is no significant stenosis, occ lusion, or dissection identified within the bilateral common carotid, internal carotid, or vertebral arteries. IMPRESSION: 1. No significant stenosis, occlusion, or aneurysm within the [place] of [place]. 2. No significant stenosis, occlusion, or dissection identified within the carotid or vertebral arter ies. ACT 112: Negative or not required by law. Electronically signed by: Hilario Peters M.D. 02/18/2021 7:16 AM
--- NOTE | 2021-02-18 07:17 | CT Scan Report ---
HEAD & NECK CTA HISTORY: Stroke Like Symptoms TECHNIQUE: Multiaxial CT images of the head were performed following the intravenous administration o f contrast to evaluate the major cerebral vessels. Multiaxial CT images of the neck were also perform ed following the intravenous administration of contrast to evaluate the major cervical vessels. Maxim um intensity projection images were also obtained. A dose lowering technique was utilized adhering to the principles of ALARA. COMPARISON: None. FINDINGS: There is no mass, hematoma, midline shift, or acute infarct. Visualized intracranial internal carotid arteries, distal vertebral arteries, and basilar artery are widely patent. There is no significant s tenosis, occlusion, or aneurysm seen within the bilateral ACAs, MCAs, or fisher pot. The major dural venous sinuses are patent. Mild calcified plaque within the bilateral carotid siphons. The aortic arch and proximal great vessels are widely patent. There is no significant stenosis, occ lusion, or dissection identified within the bilateral common carotid, internal carotid, or vertebral arteries. IMPRESSION: 1. No significant stenosis, occlusion, or aneurysm within the [place] of [place]. 2. No significant stenosis, occlusion, or dissection identified within the carotid or vertebral arter ies. ACT 112: Negative or not required by law. Electronically signed by: Hilario Peters M.D. 02/18/2021 7:16 AM
--- NOTE | 2021-02-18 07:35 | Magnetic Resonance Report ---
MRI OF THE BRAIN WITHOUT IV CONTRAST CLINICAL HISTORY: Transient ischemic attack. COMPARISON STUDY: CT of the brain dated 02/17/2021. TECHNIQUE: MRI of the brain was performed utilizing various T1 and T2-weighted sequences in the axial , sagittal, and coronal planes. IV contrast was not administered for this examination. FINDINGS: Brain parenchyma: There is minimal microangiopathic change. The brain parenchyma is otherwise normal in appearance. There is no hemorrhage or mass effect. There is no restricted diffusion to suggest acu te ischemia. Jiang-white matter differentiation is preserved. No extra-axial fluid collection is seen. The cerebellar tonsils are normal in configuration. Ventricles, sulci, and cisterns: Normal in configuration. Pituitary and sella: Partially empty sella is incidentally noted. Intracranial vasculature: Normal flow voids are maintained at the skull base. Orbits: The bony orbits are grossly intact. Orbital contents are normal in appearance. Sinuses and mastoids: Mild mucosal thickening is noted in the maxillary antra. There is trace mucosal thickening within the ethmoid sinuses. The mastoid air cells are clear. Calvarium: Unremarkable. Cervical cord: Partially visualized cervical spinal cord is normal in morphology and signal intensity . IMPRESSION: No acute intracranial abnormality. ACT 112: Negative or not required by law. Electronically signed by: Darius Rapp M.D. 02/18/2021 7:34 AM
[2021-02-18 07:36] LABS: Estimated Average Glucose 235 mg/dl; Hemoglobin A1C 9.8 % (4.5-5.6)
[2021-02-18 08:16] LABS: Basophils # (auto) 0.04 K/uL (0-0.2); Basophils % (auto) 0.4 %; Eosinophils # (auto) 0.28 K/uL (0-0.5); Eosinophils % (auto) 2.7 %; Hematocrit (blood only) 45.4 % (42-52); Hemoglobin 14.9 g/dL (14.0-18.0); Immature Granulocytes # (auto) 0.03 K/uL (0.00-0.02); Immature Granulocytes % (auto) 0.3 %; Lymphocytes % (auto) 19.3 %; Mean Corpuscular Hemoglobin 28.8 pg (25-34); Mean Corpuscular Hgb Conc 32.8 g/dL (32-36); Mean Corpuscular Volume 87.6 fL (80-100); Monocytes # (auto) 0.69 K/uL (0.11-0.59); Monocytes % (auto) 6.7 %; Neutrophils # (auto) 7.33 K/uL (1.4-6.5); Neutrophils % (auto) 70.6 %; Platelet Count 252 K/uL (130-400); RDW Standard Deviation 45.2 fL (36.4-46.3); Red Blood Count 5.18 M/uL (4.7-6.1); White Blood Count 10.37 K/uL (4.8-10.8)
[2021-02-18] MEDS: ENOXAPARIN INJ 40 MG/0.4 ML SYR SQ SCH (08:31)
[2021-02-18] MEDS: ESCITALOPRAM OXALATE 10 MG TAB PO SCH (08:33)
[2021-02-18 08:59] LABS: BUN Creatinine Ratio 14.2 (10-20); Calcium 9.3 mg/dl (8.5-10.1); Creatinine Clr Calc Pharmacy 114.2 ml/min; Est GFR (African American) 103.1 ml/min; Est GFR (Non-African American) 88.9 ml/min
[2021-02-18] MEDS: ASPIRIN 81 MG ECTAB PO SCH (10:40)
--- NOTE | 2021-02-18 18:33 | Hospitalist Progress Note ---
Date of Service February 18, 2021 Assessment & Plan (1) Aphasia: Plan: Possible related to TIA vs migraine CT head showed no acute intracranial abnormality CTA head and neck showed no significant stenosis, occlusion, or aneurysm within the [place] of [place]. No significant stenosis, occlusion, or dissection identified within the carotid or vertebral arteries. MRI brain showed no acute intracranial abnormality. 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 Ms. Brit Pinedo, contact #[phone]. Admission and Anticipated Discharge Date Admission Date: February 18, 2021 Subjective Pt was seen and examined for follow up of stroke like symptoms Lying in bed with no distress. Pt said that he feels ok He said that he is back to his baseline and does not have any more migraine Denies any chest pain, palpitation, dizziness and SOB Physical Exam Physical Exam: General- No acute distress Head- atraumatic Eyes- PERRL, EOMI, ENT- oropharynx clear Neck- supple, no JVD Lungs- clear to auscultation Heart- regular rhythm; no murmur Abdomen- normal bowel sounds, soft, nontender Extremities- no calf tenderness Neuro- alert, oriented x 3; PERRL, EOMI; no facial palsy; no dysarthria Skin- warm & dry Results & Data Results & Data ([facility]) Vital Signs (Past 12 Hours) Vital Signs Temp Pulse Resp BP Pulse Ox 02/18/21 15:08 36.7 C 91 H 18 156/87 H 94 02/18/21 11:35 36.9 C 86 18 91/56 L 95 02/18/21 07:48 36.6 C 86 16 124/70 96
[2021-02-18] MEDS ORDERED: INSULIN GLARGINE SOLOSTAR 100 UNITS/ML 3 ML PEN SQ ONE (20:00)
--- NOTE | 2021-02-19 07:42 | Consultation Report ---
DATE OF CONSULTATION: 02/18/2021. REASON FOR CONSULTATION: Possible transient ischemic attack. HISTORY OF PRESENT ILLNESS: The patient is a 61-year-old right-handed male with diabetes and hyperte nsion. On this background, he was in his usual state of health. Yesterday, he felt a headache that felt migrainous on the left side of his head that was throbbing and accompanied some blurred vision. He laid down for a nap and upon awakening in the evening, he still felt unwell with the headache and his noted ongoing difficulty with language. He was brought to the Emergency Room. Neurologic symptoms lasted at least an hour and a half or two hours. The headache lasted longer. There was oth erwise no change in vision, double vision, vertigo, facial droop or dysarthria, unilateral weakness, numbness or change in gait. He has been otherwise well, has not had any head or neck injury, chiropr actic manipulation of the neck, medical or dental procedures. He has had some diarrhea over the last several days. About a month or more ago he had an exposure to COVID from one of his children, altho ugh he was tested and tested negative. He was vaccinated. His psychiatrist stopped his Adderall abo ut a week ago to contemplate a medication that would be covered by the patient's insurance. At [facility], the patient does not take any antiplatelet therapy and is not on a statin. Over time, rarely he has throbbing headaches, on several occasions he had scintillating visual phenom enon and a headache. He indicates he was seen at the hospital for that event. PAST MEDICAL HISTORY: As above, obstructive sleep apnea, migraine, ADD and mood disorder, gout, thyr oid nodule. PAST SURGICAL HISTORY: Sebaceous cyst, tooth extraction. FAMILY HISTORY: Diabetes, heart disease, alcoholism. No history of stroke. 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 ALLERGIES: No known allergies. HOME MEDICATIONS: Lisinopril, escitalopram and metformin. His CTA of the head and neck were unremarkable. I have reviewed those images. MRI of the brain show ed minor nonspecific changes in the white matter. Labs were notable for normal white count, H and H, platelet count, normal coags, serum sodium was 133, glucose 218, hemoglobin A1c 9.8, AST 56, alkalin e phosphatase 139, LDL 87, HDL 40, TSH normal. Urine 2+ glucose. REVIEW OF SYSTEMS: A 50-pound weight loss over the last several months due to intermittent fasting. PHYSICAL EXAMINATION: VITAL SIGNS: BP 156/87, pulse 91. GENERAL: The patient is awake and alert and oriented x3. Normal naming repetitions and 3-step comma nds. No carotid bruits. No heart murmurs. CARDIOVASCULAR: Regular rate and rhythm. No murmurs, rubs or gallops. EXTREMITIES: There is no calf swelling or tenderness. Palpable posterior tibial pulses are noted. NEUROLOGIC: Pupils are equal, round and reactive to light. The optic nerves are difficult to visual ize. There is normal espinosa, motility, facial sensation and facial symmetry. Tongue is midline. Mo tor: Normal bulk and tone full strength. No drift. Normal rapid alternating movements. Symmetric r eflexes, downgoing toes. [id number] and [id number] are normal. Sensation is intact to light t ouch and temperature. IMPRESSION AND PLAN: Transient ischemic attack versus complicated migraine. The patient does have a history of rare classic migraines, but has never had aphasia. Due to his multiple vascular risk fac tors, I do not think we can confidently say this is definitely a complicated migraine. I would treat this as if it was a transient ischemic attack. I would use dual antiplatelet therapy with aspirin 8 1 mg and Plavix 75 mg daily for 3 weeks and then discontinuing Plavix and continue aspirin. Recommen d better control of diabetes. Recommend beginning statin therapy with a goal LDL of 70 or less. Gra dually better control of blood pressure. The patient should see us in followup post-discharge. We w ill order a Zio patch at that time. I do not think the patient requires anything prophylactic for migraine at this time. Job ID: [id number]
[2021-02-19] MEDS: ASPIRIN 81 MG ECTAB PO SCH (08:30)
[2021-02-19] MEDS: ENOXAPARIN INJ 40 MG/0.4 ML SYR SQ SCH (08:30)
[2021-02-19] MEDS: ESCITALOPRAM OXALATE 10 MG TAB PO SCH (08:30)
[2021-02-19] MEDS: INSULIN ASPART 100 UNITS/ML 3 ML PEN SC SCH ×2 (08:33→12:32)
[2021-02-19] MEDS ORDERED: ATORVASTATIN 40 MG TAB PO SCH (09:45)
[2021-02-19] MEDS ORDERED: CLOPIDOGREL BISULFATE 75 MG TAB PO SCH (09:45)
--- NOTE | 2021-02-19 15:02 | Discharge Summary ---
Date of Service February 19, 2021 Admission HPI Per Admitting Provider History obtained from patient, family, and records. Medical history significant for hypertension, DM2 on oral meds, NILSA on CPAP, migraine, ADD, mood disorder. Yesterday afternoon patient noted achy left-sided headache symptoms somewhat different from usual migraine attack. Patient felt dazed. Computer images look different as per patient. Patient had trouble getting words out. No prior episodes. Usual migraine attacks associated with bright lights about 2 times a year in frequency in the last 10 years. Usual precipitant is stress and fatigue. Migraine attacks go away with rest as per patient. Patient denies chest pain, S OB. Improved symptoms upon arrival at the ER. 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 Admission Exam Per Admitting Provider GENERAL: Comfortable, pleasant, morbidly obese, no respiratory distress SKIN: Normal color, warm HEENT: Alopecia, [place] palpebral conjunctivae, no ptosis, moist buccal mucosa NECK : Supple, short neck, no tenderness CHEST : CTA, no tenderness HEART : RRR, no obvious murmurs ABDOMEN: distention, nontender EXTREMITIES : No LE swelling/tenderness, no other conspicuous deformities noted NEUROLOGIC : Coherent, no facial asymmetry, no other gross focality Principal Diagnosis Stroke like symptoms Possible transient ischemic attack vs migraine Uncontrolled Diabetes Discharge Exam General- No acute distress Head- atraumatic Eyes- PERRL, EOMI, ENT- oropharynx clear Neck- supple, no JVD Lungs- clear to auscultation Heart- regular rhythm; no murmur Abdomen- normal bowel sounds, soft, nontender Extremities- no calf tenderness Neuro- alert, oriented x 3; PERRL, EOMI; no facial palsy; no dysarthria Skin- warm & dry Discharge Data Allergies Allergy/AdvReac Type Severity Reaction Status Date / Time No Known Allergies Allergy Verified 02/17/21 20:51 Consultations 02/18/21 00:38 ED Decision to Admit Stat 02/18/21 03:24 Consult Neurology Routine Ordered Studies 02/17/21 22:04 CT head/brain wo con Urgent 02/17/21 22:07 CT angio head w con Urgent CT angio neck with con Urgent 02/18/21 03:24 MR brain wo con Routine MRI OF THE BRAIN WITHOUT IV CONTRAST CLINICAL HISTORY: Transient ischemic attack. COMPARISON STUDY: CT of the brain dated 02/17/2021. TECHNIQUE: MRI of the brain was performed utilizing various T1 and T2-weighted sequences in the axial, sagittal, and coronal planes. IV contrast was not administered for this examination. FINDINGS: Brain parenchyma: There is minimal microangiopathic change. The brain parenchyma is otherwise normal in appearance. There is no hemorrhage or mass effect. There is no restricted diffusion to suggest acute ischemia. Jiang-white matter differentiation is preserved. No extra-axial fluid collection is seen. The cerebellar tonsils are normal in configuration. Ventricles, sulci, and cisterns: Normal in configuration. Pituitary and sella: Partially empty sella is incidentally noted. Intracranial vasculature: Normal flow voids are maintained at the skull base. Orbits: The bony orbits are grossly intact. Orbital contents are normal in appearance. Sinuses and mastoids: Mild mucosal thickening is noted in the maxillary antra. There is trace mucosal thickening within the ethmoid sinuses. The mastoid air cells are clear. Calvarium: Unremarkable. Cervical cord: Partially visualized cervical spinal cord is normal in morphology and signal intensity. IMPRESSION: No acute intracranial abnormality. ACT 112: Negative or not required by law. Electronically signed by: Darius Rapp M.D. 02/18/2021 7:34 AM Dictated: 02/18/21730Transcribed: 02/18/21730 HEAD & NECK CTA HISTORY: Stroke Like Symptoms TECHNIQUE: Multiaxial CT images of the head were performed following the intravenous administration of contrast to evaluate the major cerebral vessels. Multiaxial CT images of the neck were also performed following the intravenous administration of contrast to evaluate the major cervical vessels. Maximum intensity projection images were also obtained. A dose lowering technique was u tilized adhering to the principles of ALARA. COMPARISON: None. FINDINGS: There is no mass, hematoma, midline shift, or acute infarct. Visualized intracranial internal carotid arteries, distal vertebral arteries, and basilar artery are widely patent. There is no significant stenosis, occlusion, or aneurysm seen within the bilateral ACAs, MCAs, or correspondence review clerk. The major dural venous sinuses are patent. Mild calcified plaque within the bilateral carotid siphons. The aortic arch and proximal great vessels are widely patent. There is no significant stenosis, occlusion, or dissection identified within the bilateral common carotid, internal carotid, or vertebral arteries. IMPRESSION: 1. No significant stenosis, occlusion, or aneurysm within the [place]. 2. No significant stenosis, occlusion, or dissection identified within the carotid or vertebral arteries. ACT 112: Negative or not required by law. Electronically signed by: Hilario Peters M.D. 02/18/2021 7:16 AM Dictated: 02/18/21 07Transcribed: 02/18/21711 HEAD & NECK CTA HISTORY: Stroke Like Symptoms TECHNIQUE: Multiaxial CT images of the head were performed following the intravenous administration of contrast to evaluate the major cerebral vessels. Multiaxial CT images of the neck were also performed following the intravenous administration of contrast to evaluate the major cervical vessels. Maximum intensity projection images were also obtained. A dose lowering technique was utilized adhering to the principles of ALARA. COMPARISON: None. FINDINGS: There is no mass, hematoma, midline shift, or acute infarct. Visualized intracranial internal carotid arteries, distal vertebral arteries, and basilar artery are widely patent. There is no significant stenosis, occlusion, or aneurysm seen within the bilateral ACAs, MCAs, or correspondence review clerk. The major dural venous sinuses are patent. Mild calcified plaque within the bilateral carotid siphons. The aortic arch and proximal great vessels are widely patent. There is no significant stenosis, occlusion, or dissection identified within the bilateral common carotid, internal carotid, or vertebral arteries. IMPRESSION: 1. No significant stenosis, occlusion, or aneurysm within the [place]. 2. No significant stenosis, occlusion, or dissection identified within the carotid or vertebral arteries. ACT 112: Negative or not required by law. Electronically signed by: Hilario Peters M.D. 02/18/2021 7:16 AM Dictated: 02/18/21 0712Transcribed: 02/18/[address]AST [address] DOSE: HISTORY: Stroke like symptoms. TECHNIQUE: Multiaxial CT images of the head were performed without the use of intravenous contrast. Automated exposure control was utilized for this study. A dose lowering technique was utilized adhering to the principles of ALARA. Comparison: None. Findings: Mild mucosal thickening within the maxillary sinuses. The mastoid air cells are clear. The calvarium and skull base are intact. The ventricles and sulci are within normal limits. There is no mass, hematoma, midline shift, or acute infarct. Impression: No acute intracranial abnormality. ACT 112: Negative or not required by law. Electronically signed by: Hilario Peters M.D. 02/18/2021 7:11 AM Dictated: 02/18/21 0709Transcribed: 02/18/21 0709 Diabetes Follow up Diabetes Follow-up Needed for HgbA1c >9% Hospital Course (1) Aphasia: Possible related to TIA vs migraine CT head showed no acute intracranial abnormality CTA head and neck showed no significant stenosis, occlusion, or aneurysm within the [place]. No significant stenosis, occlusion, or dissection identified within the carotid or vertebral arteries. MRI brain showed no acute intracranial abnormality. ECHO showed no atrial shunt Neurology on board recommended dual antiplatelet therapy with aspirin 81 mg and Plavix 75 mg daily for 3 weeks and then discontinuing Plavix and continue aspirin. Atorvastatin added to keep LDL under 70 Pt will need to arrange for outpatient Zio patch monitor Follow up with Neurology in 3 to 4 weeks clinically improved DM type 2 Uncontrolled DM Most recent Hba1c 9.8 on 02/17/21 On Lantus 15 units and novolog sliding scale hematology nurse educator on board Pt feels like he can do lifestyle modification to lower his Hba1c Will continue metformin on discharge HTN BP stable Continue monitor Lisinopril NILSA Continue CPAP DVT prophylaxis with Lovenox subcu Full code Disposition Will discharge home today Patient's requesting update providers. Ms. Brit Pinedo, contact #[phone]. Total Time Total Time Spent Total Time Spent (In Minutes): 35 minutes Discharge Plan Discharge Items Patient Disposition: Home - Self-Care Reason For Visit: TIA, MCKEON Discharge Diagnosis: Stroke like symptoms Possible transient ischemic attack vs migraine Uncontrolled Diabetes Activity: Resume your previous activity Non-emergency contact: Primary Care Provider Call non-emergency contact if: you have any medication questions Follow-up/Referrals: Jann Delgado DO [Primary Care Provider] - (Date & Time 02/23/2021 11:00 AM Provider Jann Delgado DO Department [facility] ) Diet: Carb Consistent or DM2 Addtl Attending Provider Instructions: Follow up with your primary care provider Dr Delgado on 02/23/2021 at 11:00 AM at the [facility] Follow up with Neurology Dr. Tello or her colleagues in 3- 4 weeks You will need to arrange for a ZIO Patch heart monitor ( Your provider or neurology will arrange it for you) Continue dual antiplatelet therapy with Plavix 75mg and aspirin 81mg for 21 days, then discontinuing Plavix and continue aspirin. Avoid any NSAID such as motrin, aleve, naproxen, ibuprofen, advil ,.. while on plavix and aspirin to decrease the risk of bleeding Since you are started on Cholesterol medication ( Atorvastatin ), You will need to check LFT in 2 weeks to monitor your Liver enzymes Follow a health diabetes diet and limited concentrated sweet intake Check Hba1c in 3 months and if not at goal, your provider will titrate your diabetes medication Pending Studies at Discharge: Yes Stand-Alone Forms: [facility], Smoking Cessation Medications and DC Order Prescriptions: New clopidogrel 75 mg Tablet 75 mg PO QAM 30 Days Qty: 30 RF: 0 atorvastatin 40 mg Tablet 40 mg PO QAM Qty: 30 RF: 0 aspirin 81 mg Tablet,Delayed Release (Dr/Ec) 81 mg PO QAM Qty: 30 RF: 0 Continued lisinopril 10 mg Tablet 10 mg PO QAM RF: 0 metformin 1,000 mg tablet 1,000 mg PO BIDM RF: 0 escitalopram oxalate 10 mg tablet 10 mg PO QAM RF: 0 Discharge Orders: Discharge Order (Routine); Ordered 02/19/21 Ordered By: Patricio Patterson Admission Data Admit Date/Time: 02/18/21 01:29 Attending Provider: Patricio Patterson Admit Provider: Darien Blanc Primary Care Provider: Jann Delgado Other Providers: Lauren Thornton ; Stew Simpson ; Lauren Tello ; Jakob Barth ; Darien Blanc Other Interventions: Discharge Summary Assessment (RN) Last Done: 02/19/21 13:33
[2021-02-19] MEDS ORDERED: INSULIN GLARGINE SOLOSTAR 100 UNITS/ML 3 ML PEN SC SCH (21:00)
--- NOTE | 2021-02-20 16:01 | Electrocardiogram Report ---
Test Reason : Blood Pressure : / mmHG Vent. Rate : 092 BPM Atrial Rate : 092 BPM P-R Int : 212 ms QRS Dur : 088 ms QT Int : 330 ms P-R-T Axes : 061 -17 032 degrees QTc Int : 408 ms Sinus rhythm with 1st degree A-V block Otherwise normal ECG When compared with ECG of 28-MAR-2010 00:47, No significant change was found Confirmed by Fabian Gastelum ([id number]) on 02/20/2021 4:01:07 PM Referred By: REFERRED SELF Confirmed By:Fabian Gastelum
== END 2021-02-19 16:26 | disposition home or self-care (01) ==
LOC: 2N 20:13 → ED 20:13 → 2N 02-18 02:28

== ENCOUNTER 2025-02-27 20:47 | Observation (INO) ==
--- NOTE | 2025-02-27 21:02 | Emergency Department Note ---
Impression & Plan Stroke-like symptom Admission ED Provider Note HPI: History obtained from patient's . The patient is a 65-year-old gentleman with history of type 2 diabetes, hyperlipidemia, hypertension, who presents to the emergency department with concern for expressive aphasia. According to the patient's , his symptoms started at 8:13 PM. Stroke alert was activated from triage. Patient was evaluated by myself at the bedside at approximately 9:07 PM after he returned from CT scan. Upon my evaluation, the patient is alert and oriented x 3, he does not have any focal deficits, he does not have any word finding difficulty. He does not have any current symptoms aside from a mild headache. Patient does note that he had similar symptoms about 4 years ago for which she had a workup including negative MRI imaging of the brain. Patient states he does have a history of migraine headaches. On arrival here to the ED the patient is hemodynamically stable, he is afebrile on arrival and saturating well on room air. Patient otherwise appears to be in no acute distress on my initial assessment. ROS: - Per HPI Differential Diagnosis: Acute ischemic stroke, intracranial hemorrhagic event/stroke, migraine headache, labile blood glucose levels, critical electrolyte abnormalities, amongst other potential pathologies. *Outpatient medications and allergy history reviewed. 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: (As interpreted by myself): - An order was placed for continuous cardiac monitoring - Patient was noted to be in sinus rhythm with a rate of 95 EKG: (As interpreted by myself): Rate: 104 Rhythm: Sinus tachycardia Intervals: WI interval 222 ms, otherwise within normal limits ST changes: No ST elevation Time: 2121 NIH STROKE SCALE: 1A: Level of consciousness Alert; keenly responsive 0 1B: Ask month and age Both questions right 0 1C: 'Blink eyes' & 'squeeze hands' Performs both tasks 0 2: Horizontal extraocular movements Normal 0 3: Visual espinosa No visual loss 0 4: Facial palsy Normal symmetry 0 5A: Left arm motor drift No drift for 10 seconds 0 5B: Right arm motor drift No drift for 10 seconds 0 6A: Left leg motor drift No drift for 5 seconds 0 6B: Right leg motor drift No drift for 5 seconds 0 7: Limb Ataxia No ataxia 0 8: Sensation Normal; no sensory loss 0 9: Language/aphasia Normal; no aphasia 0 10: Dysarthria Normal 0 11: Extinction/inattention No abnormality 0 TOTAL NIH SCORE = 0 Interventions provided in ED: - Aspirin Medical Decision Making: IV was established and lab work obtained, patient was placed on genetics physician. Patient was not considered a candidate for thrombolytics given symptomatic resolution. He has an NIH stroke scale of 0. CT imaging of head without contrast as well as CT angiography of the head and neck was obtained. No evidence of any stroke is noted. This was discussed with the interpreting radiologist. Given that stroke alert was activated, I did discuss the patient's presentation with the on-call stroke neurologist at [facility], Dr. Patterson. She is in agreement following our discussion that given that the patient's symptoms are completely resolved that he would not be a candidate for thrombolytics. She did recommend echocardiography and lipid panel given the patient's multiple risk factors including type 2 diabetes, hypertension, hyperlipidemia. Patient's lab work shows a mild leukocytosis, hemoglobin is normal, platelet count is normal, CMP does not show any evidence of any critical findings. Glucose is 233, troponin is negative. I discussed all of the above with the patient, he is in agreement for admission. Case was discussed with the on-call hospitalist, Dr. Blanc, and the patient was placed for admission in stable condition. He remains well-appearing on my reassessment without any focal deficits prior to admission. Consultants/Discussions held with other healthcare providers: - Stroke neurology, Dr. Patterson - Hospitalist, Dr. Blanc Disposition discussion held by myself with: - Patient and patient's at the bedside Diagnosis: 1. Transient aphasia, acute, nonspecific 2. Transient visual change, acute, nonspecific 3. Strokelike episode, acute Disposition: Admission Zak Case DO Emergency Medicine Past Med/Surg History Problem List (Updated 02/27/25 @ 23:27 by Zak Case DO) Stroke-like symptom (Acute) Headache (Acute) Aphasia (Acute) Altered mental status (Acute) Encounter for pre-operative examination Back abscess (Acute) Medical History (Updated 02/27/25 @ 23:27 by Zak Case DO) Thyroid nodule MONITORING Hyperlipidemia Diabetes mellitus, type 2 NIDDM Attention deficit disorder (ADD) Hypertension Gout Sleep apnea CPAP Surgical History History of tooth extraction History of colonoscopy Family History Father Family history of diabetes mellitus Grandmother (Paternal) Family history of diabetes mellitus Social History Smoking Status: Unknown if ever smoked Second Hand Exposure: Yes ( A CHILD); Do You Dip or Chew Tobacco: No; Hx Alcohol Use: No Hx Substance Use: No Preferred Language: German Communication Ability: Effective Hockey Scout Required: No Beliefs That Will Affect Care: None Current Living Situation: Spouse and Family Feels Safe at Home: Yes Assistive Devices: None Allergies Allergies Allergy/AdvReac Type Severity Reaction Status Date / Time No Known Allergies Allergy Verified 02/27/25 21:13 Home Meds Home Medications Medication Instructions Recorded Confirmed lisinopril 10 mg tablet 10 mg PO QAM 06/13/18 02/27/25 escitalopram oxalate 10 mg tablet 10 mg PO QAM 02/17/21 02/27/25 allopurinol 100 mg tablet 100 mg PO QAM 02/27/25 02/27/25 cholecalciferol (vitamin D3) 50 50 mcg PO QAM 02/27/25 02/27/25 mcg (2,000 unit) capsule (Vitamin D3) cyanocobalamin (vitamin B-12) 1,000 mcg sublingual QAM 02/27/25 02/27/25 1,000 mcg sublingual tablet empagliflozin 25 mg tablet 25 mg PO QAM 02/27/25 02/27/25 (Jardiance) indomethacin 50 mg capsule 50 mg PO TID PRN gout flare 02/27/25 02/27/25 metformin 500 mg tablet,extended 2,000 mg PO HS 02/27/25 02/27/25 release 24 hr Previous Rx's Medication Instructions Recorded aspirin 81 mg tablet,delayed 81 mg PO QAM #30 tabs 02/19/21 release atorvastatin 40 mg tablet 40 mg PO QAM #30 tabs 02/19/21 Results & Data (ED) Vital Signs Vital Signs - 24 hr 02/27/25 20:48 02/27/25 21:12 02/27/25 21:13 Temperature 36.4 C L Temperature Source Temporal Artery Scan Pulse Rate 100 H Pulse Rate from SpO2 Sensor 104 H Respiratory Rate 16 Blood Pressure 140/75 155/91 H Blood Pressure Mean 96 120 Pulse Oximetry 91 93 Oxygen Delivery Method Room Air Sepsis Recent Fever Within 48 Hours No Sepsis New/Unexplained Change in Mental Status No Sepsis Action Taken by Nursing No Action Required 02/27/25 21:15 02/27/25 21:18 02/27/25 21:20 Temperature Temperature Source Pulse Rate 103 H Pulse Rate from SpO2 Sensor 103 H Respiratory Rate 21 Blood Pressure 139/74 Blood Pressure Mean 114 Pulse Oximetry 94 94 Oxygen Delivery Method Room Air Sepsis Recent Fever Within 48 Hours Sepsis New/Unexplained Change in Mental Status Sepsis Action Taken by Nursing 02/27/25 21:24 02/27/25 21:26 02/27/25 21:30 Temperature Temperature Source Pulse Rate 98 H 102 H Pulse Rate from SpO2 Sensor 98 H Respiratory Rate 18 Blood Pressure 152/86 H Blood Pressure Mean 103 Pulse Oximetry 93 Oxygen Delivery Method Sepsis Recent Fever Within 48 Hours Sepsis New/Unexplained Change in Mental Status Sepsis Action Taken by Nursing 02/27/25 21:45 02/27/25 21:45 02/27/25 21:51 Temperature Temperature Source Pulse Rate 104 H 103 H Pulse Rate from SpO2 Sensor 104 H 102 H Respiratory Rate 18 24 Blood Pressure 142/81 H Blood Pressure Mean 99 Pulse Oximetry 95 95 Oxygen Delivery Method Sepsis Recent Fever Within 48 Hours Sepsis New/Unexplained Change in Mental Status Sepsis Action Taken by Nursing 02/27/25 21:54 02/27/25 22:00 02/27/25 22:03 Temperature Temperature Source Pulse Rate 104 H 99 H Pulse Rate from SpO2 Sensor 104 H 99 H Respiratory Rate 19 20 Blood Pressure 119/76 Blood Pressure Mean 91 Pulse Oximetry 93 93 Oxygen Delivery Method Sepsis Recent Fever Within 48 Hours Sepsis New/Unexplained Change in Mental Status Sepsis Action Taken by Nursing 02/27/25 22:12 02/27/25 22:15 02/27/25 22:27 Temperature Temperature Source Pulse Rate 99 H 101 H Pulse Rate from SpO2 Sensor 99 H 102 H Respiratory Rate 14 17 Blood Pressure 141/75 H Blood Pressure Mean 102 Pulse Oximetry 93 92 Oxygen Delivery Method Sepsis Recent Fever Within 48 Hours Sepsis New/Unexplained Change in Mental Status Sepsis Action Taken by Nursing 02/27/25 22:30 02/27/25 22:33 02/27/25 22:42 Temperature Temperature Source Pulse Rate 105 H 98 H Pulse Rate from SpO2 Sensor 104 H 96 H Respiratory Rate 20 19 Blood Pressure 132/72 Blood Pressure Mean 91 Pulse Oximetry 94 95 Oxygen Delivery Method Sepsis Recent Fever Within 48 Hours Sepsis New/Unexplained Change in Mental Status Sepsis Action Taken by Nursing Laboratory Data 02/27/25 21:03 02/27/25 21:03 Lab Results 02/27/25 02/27/25 02/27/25 Range/Units 21:03 21:10 21:12 WBC 12.18 H (4.8-10.8) K/ul RBC 5.59 (4.70-6.10) M/uL Hgb 15.8 (14.0-18.0) g/dl POC Hgb 16.7 (14.0-18.0) g/dl Hct 47.7 (42.0-52.0) % POC Hct 49 (42-52) % MCV 85.3 (80.0-100.0) fL MCH 28.3 (25.0-34.0) pg MCHC 33.1 (32.0-36.0) g/dL RDW Std Deviation 45.9 (36.4-46.3) fL RDW Coeff of Sp 14.7 H (11.5-14.5) % Plt Count 274 (130-400) K/uL MPV 11.8 (9.4-12.4) fL Immature Gran % (Auto) 0.4 % Neut % (Auto) 69.3 % Lymph % (Auto) 18.6 % Mccreary % (Auto) 8.0 % Eos % (Auto) 3.0 % Baso % (Auto) 0.7 % Neut # (Auto) 8.43 H (1.40-6.50) K/uL Lymph # (Auto) 2.26 (1.20-3.40) K/uL Mccreary # (Auto) 0.98 H (0.11-0.59) K/uL Eos # (Auto) 0.37 (0.00-0.50) K/uL Baso # (Auto) 0.09 (0.00-0.20) K/uL Immature Gran # (Auto) 0.05 (0.01-0.20) K/uL PT 11.6 (9.0-12.0) Seconds INR 1.1 (0.9-1.1) APTT 28 (21-31) Seconds PTT Ratio 1.0 POC Sodium 139 (135-144) mmol/L Sodium 138 (136-145) mmol/L POC Potassium 4.3 (3.3-5.0) mmol/L Potassium 4.5 (3.5-5.1) mmol/L POC Chloride 101 (101-112) mmol/L Chloride 102 (98-107) mmol/L Carbon Dioxide 27 (21-32) mmol/L POC Total CO2 25 (24-31) mmol/L Anion Gap 9 (3-11) POC Anion Gap 18.0 (16-25) mmol/L POC BUN 21 H (7-18) mg/dl BUN 20 (6-23) mg/dl Creatinine 1.00 (0.6-1.4) mg/dl POC Creatinine 1.0 (0.6-1.3) mg/dl Est Cr Clr Drug Dosing 96.4 ml/min eGFR 84.05 BUN/Creatinine Ratio 20.0 (10-20) Glucose 233 H (70-99(Fasting)) mg/dl POC Glucose (other) 227 H (70-99) mg/dl Calcium 10.8 H (8.6-10.3) mg/dl POC Ioniz Calcium Eulalia 1.39 H (1.12-1.32) mmol/l Phosphorus 2.7 (2.5-4.9) mg/dl Magnesium 1.7 (1.7-2.4) mg/dl Total Bilirubin 0.4 (0.2-1.0) mg/dl AST 30 (13-39) U/L ALT 17 (7-52) U/L Alkaline Phosphatase 103 (34-104) U/L Troponin I High Sens 6.2 (0-20) pg/ml Total Protein 7.6 (6.0-8.3) gm/dl Albumin 4.0 (3.4-5.0) gm/dl Globulin 3.6 (2.5-4.0) gm/dl Albumin/Globulin Ratio 1.1 (0.9-2) Procalcitonin 0.02 (0-0.5) ng/ml Blood Type O Positive Antibody Screen NEGATIVE Administered Medications Magnesium Sulfate/Dextrose (Magnesium Sulfate / D5w) 1 gm in 100 mls @ 50 mls/hr IV Q2H SHIMON Stop: 02/28/25 01:59 Last Admin: 02/27/25 22:38 Dose: 50 mls/hr Documented By: BRODERICK Discontinued Medications Aspirin (Aspirin Chew 324 Mg) 243 mg PO NOW STA Stop: 02/27/25 21:43 Last Admin: 02/27/25 22:38 Dose: 243 mg Documented By: BRODERICK Ioversol (Optiray 320 125ml) 119 ml IV ONCE ONE Stop: 02/27/25 21:12 Last Admin: 02/27/25 21:11 Dose: 119 ml Documented By: KRISTIAN Imaging Data Radiologist's Impression: Head CT 02/27/25 20:55 CR Exam(s): CT HEAD Without Contrast EXAM: CT Head Without Intravenous Contrast CLINICAL HISTORY: Reason for exam: neuro deficit, acute stroke suspected. TECHNIQUE: Axial computed tomography images of the head/brain without intravenous contrast. CTDI is 35.65 mGy and DLP is 624.41 mGy-cm. Automated exposure control was utilized for the study. A dose lowering technique was utilized adhering to the principles of ALARA. Moderate motion/artifact COMPARISON: MRI brain 02/18/2021. FINDINGS: Brain: No mass effect or acute infarct. No acute hemorrhage. Mild atrophy and minimal, chronic, nonspecific white matter disease. No significant change, given differences in technique. Ventricles: No hydrocephalus or midline shift. Bones/joints: No acute finding. Soft tissues: No scalp hematoma. Visualized Sinuses: Clear. Mastoid air cells: No mastoid effusion. IMPRESSION: 1. Mild age-related findings. 2. No acute infarct, bleed, or acute intracranial abnormality. Communications: Call Doctor Stroke Electronically signed by: Lisa Rothman M.D. 02/27/25 21:34 PM Head CTA 02/27/25 20:55 CR Exam(s): CTA HEAD With Contrast IV Amt: 119 ml optiray 320 EXAM: CT Angiography Head With Intravenous Contrast CLINICAL HISTORY: Reason for exam: neuro deficit, acute stroke suspected. TECHNIQUE: Axial computed tomographic angiography images of the head with intravenous contrast. CTDI is 14.62 mGy and DLP is 588.98 mGy-cm. Automated exposure control was utilized for the study. A dose lowering technique was utilized adhering to the principles of ALARA. MIP reconstructed images were created and reviewed. Mild motion/artifact. CONTRAST: Patient received 119 ml optiray 320 of IV contrast COMPARISON: Head CT same day. FINDINGS: Right internal carotid artery: Patent. Right anterior cerebral artery: Patent. Right middle cerebral artery: Patent. Right posterior cerebral artery: Patent. Right vertebral artery: Patent. Left internal carotid artery: Patent. Left anterior cerebral artery: Patent. Left middle cerebral artery: Patent. Left posterior cerebral artery: Patent. Left vertebral artery: Patent. Basilar artery: Patent. Other: Mild atherosclerosis bilateral cavernous ICA, without significant stenosis. IMPRESSION: 1. No aneurysm or large vessel occlusion. Communications: Call Doctor Stroke Electronically signed by: Lisa Rothman M.D. 02/27/25 21:33 PM Neck CTA 02/27/25 20:55 CR Exam(s): CTA NECK With Contrast IV Amt: 119 ml optiray 320 EXAM: CT Angiography Neck With Intravenous Contrast CLINICAL HISTORY: Reason for exam: neuro deficit, acute stroke suspected. TECHNIQUE: Routine carotid CT angiography protocol was performed with intravenous contrast. NASCET criteria using the distal ICAs for comparison were used for evaluation of stenoses. CTDI is 16.61 mGy and DLP is 8.3 mGy-cm. Automated exposure control was utilized for the study. A dose lowering technique was utilized adhering to the principles of ALARA. MIP reconstructed images were created and reviewed. CONTRAST: Patient received 119 ml optiray 320 of IV contrast COMPARISON: None. FINDINGS: Right common carotid artery: Patent. Right internal carotid artery: Patent. Right vertebral artery: Patent. Slight right dominant system. Left common carotid artery: Patent. Left internal carotid artery: Patent. Left vertebral artery: Patent. Other: Mild atherosclerosis bilateral carotid bifurcation, without significant stenosis. IMPRESSION: 1. No dissection, occlusion, or significant stenosis. CAROTID STENOSIS REFERENCE USING NASCET CRITERIA: % ICA stenosis = (1 - narrowest ICA diameter/diameter of distal cervical ICA) x 100. Mild - <50% stenosis. Moderate - 50-69% stenosis. Severe - 70-94% stenosis. Near occlusion - 95-99% stenosis. Occluded - 100% stenosis. Communications: Call Doctor Stroke Electronically signed by: Lisa Rothman M.D. 02/27/25 21:33 PM Discharge Plan Visit Data Chief Complaint: Stroke/CVA Symptoms Stated Complaint: CANT EXPRESS WHAT HE WANT ED Provider: Zak Case Discharge Problem: Stroke-like symptom Patient Disposition: Admitted As Inpatient Condition: Fair Forms Stand Alone Forms: My [facility] Prescriptions Prescriptions: No Action lisinopril 10 mg Tablet 10 mg PO QAM escitalopram oxalate 10 mg tablet 10 mg PO QAM atorvastatin 40 mg Tablet 40 mg PO QAM Qty: 30 0RF aspirin 81 mg Tablet,Delayed Release (Dr/Ec) 81 mg PO QAM Qty: 30 0RF metformin 500 mg tablet extended release 24 hr 2,000 mg PO HS Jardiance 25 mg tablet 25 mg PO QAM allopurinol 100 mg tablet 100 mg PO QAM indomethacin 50 mg capsule 50 mg PO TID PRN (Reason: gout flare) cholecalciferol (vitamin D3) [Vitamin D3] 50 mcg (2,000 unit) Capsule 50 mcg PO QAM cyanocobalamin (vitamin B-12) 1,000 mcg Tablet, Sublingual 1,000 mcg SUBLINGUAL QAM Referrals Referrals: Jann Delgado DO [Primary Care Provider] -
[2025-02-27] MEDS: OPTIRAY 320 125ml IV ONE (21:11)
--- NOTE | 2025-02-27 21:34 | CT Scan Report ---
Exam(s): CTA NECK With Contrast IV Amt: 119 ml optiray 320 EXAM: CT Angiography Neck With Intravenous Contrast CLINICAL HISTORY: Reason for exam: neuro deficit, acute stroke suspected. TECHNIQUE: Routine carotid CT angiography protocol was performed with intravenous contrast. NASCET criteria using the distal ICAs for comparison were used for evaluation of stenoses. CTDI is 16.61 mGy and DLP is 8.3 mGy-cm. Automated exposure control was utilized for the study. A dose lowering technique was utilized adhering to the principles of ALARA. MIP reconstructed images were created and reviewed. CONTRAST: Patient received 119 ml optiray 320 of IV contrast COMPARISON: None. FINDINGS: Right common carotid artery: Patent. Right internal carotid artery: Patent. Right vertebral artery: Patent. Slight right dominant system. Left common carotid artery: Patent. Left internal carotid artery: Patent. Left vertebral artery: Patent. Other: Mild atherosclerosis bilateral carotid bifurcation, without significant stenosis. IMPRESSION: 1. No dissection, occlusion, or significant stenosis. CAROTID STENOSIS REFERENCE USING NASCET CRITERIA: % ICA stenosis = (1 - narrowest ICA diameter/diameter of distal cervical ICA) x 100. Mild - <50% stenosis. Moderate - 50-69% stenosis. Severe - 70-94% stenosis. Near occlusion - 95-99% stenosis. Occluded - 100% stenosis. Communications: Call Doctor Stroke Electronically signed by: Lisa Rothman M.D. 02/27/25 21:33 PM
--- NOTE | 2025-02-27 21:35 | CT Scan Report ---
Exam(s): CTA HEAD With Contrast IV Amt: 119 ml optiray 320 EXAM: CT Angiography Head With Intravenous Contrast CLINICAL HISTORY: Reason for exam: neuro deficit, acute stroke suspected. TECHNIQUE: Axial computed tomographic angiography images of the head with intravenous contrast. CTDI is 14.62 mGy and DLP is 588.98 mGy-cm. Automated exposure control was utilized for the study. A dose lowering technique was utilized adhering to the principles of ALARA. MIP reconstructed images were created and reviewed. Mild motion/artifact. CONTRAST: Patient received 119 ml optiray 320 of IV contrast COMPARISON: Head CT same day. FINDINGS: Right internal carotid artery: Patent. Right anterior cerebral artery: Patent. Right middle cerebral artery: Patent. Right posterior cerebral artery: Patent. Right vertebral artery: Patent. Left internal carotid artery: Patent. Left anterior cerebral artery: Patent. Left middle cerebral artery: Patent. Left posterior cerebral artery: Patent. Left vertebral artery: Patent. Basilar artery: Patent. Other: Mild atherosclerosis bilateral cavernous ICA, without significant stenosis. IMPRESSION: 1. No aneurysm or large vessel occlusion. Communications: Call Doctor Stroke Electronically signed by: Lisa Rothman M.D. 02/27/25 21:33 PM
--- NOTE | 2025-02-27 21:35 | CT Scan Report ---
Exam(s): CT HEAD Without Contrast EXAM: CT Head Without Intravenous Contrast CLINICAL HISTORY: Reason for exam: neuro deficit, acute stroke suspected. TECHNIQUE: Axial computed tomography images of the head/brain without intravenous contrast. CTDI is 35.65 mGy and DLP is 624.41 mGy-cm. Automated exposure control was utilized for the study. A dose lowering technique was utilized adhering to the principles of ALARA. Moderate motion/artifact COMPARISON: MRI brain 02/18/2021. FINDINGS: Brain: No mass effect or acute infarct. No acute hemorrhage. Mild atrophy and minimal, chronic, nonspecific white matter disease. No significant change, given differences in technique. Ventricles: No hydrocephalus or midline shift. Bones/joints: No acute finding. Soft tissues: No scalp hematoma. Visualized Sinuses: Clear. Mastoid air cells: No mastoid effusion. IMPRESSION: 1. Mild age-related findings. 2. No acute infarct, bleed, or acute intracranial abnormality. Communications: Call Doctor Stroke Electronically signed by: Lisa Rothman M.D. 02/27/25 21:34 PM
[2025-02-27 21:38] LABS: Alanine Aminotransferase 17.0 U/L (7-52); Albumin Globulin Ratio 1.1 (0.9-2); Alkaline Phosphatase 103.0 U/L (34-104); Anion Gap 9.0 (3-11); Bilirubin,Total 0.4 mg/dl (0.2-1.0); Blood Urea Nitrogen 20.0 mg/dl (6-23); Calcium 10.8 mg/dl (8.6-10.3); Carbon Dioxide 27.0 mmol/L (21-32); Chloride 102.0 mmol/L (98-107); Creatinine Clr Calc Pharmacy 96.4 ml/min; Globulin 3.6 gm/dl (2.5-4.0); Glucose 233.0 mg/dl (70-99(Fasting)); Magnesium 1.7 mg/dl (1.7-2.4); Potassium 4.5 mmol/L (3.5-5.1); Sodium 138.0 mmol/L (136-145); Total Protein 7.6 gm/dl (6.0-8.3)
[2025-02-27 21:47] LABS: Hematocrit (blood only) 47.7 % (42.0-52.0); Hemoglobin 15.8 g/dl (14.0-18.0); Immature Granulocytes # (auto) 0.05 K/uL (0.01-0.20); Immature Granulocytes % (auto) 0.4 %; Mean Corpuscular Hemoglobin 28.3 pg (25.0-34.0); Mean Corpuscular Volume 85.3 fL (80.0-100.0); Platelet Count 274 K/uL (130-400); RDW Standard Deviation 45.9 fL (36.4-46.3); Red Blood Count 5.59 M/uL (4.70-6.10); White Blood Count 12.18 K/ul (4.8-10.8)
[2025-02-27 21:49] LABS: INR 1.1 (0.9-1.1); Partial Thromboplastin Time 28 Seconds (21-31); Prothrombin Time 11.6 Seconds (9.0-12.0)
[2025-02-27] MEDS: ASPIRIN CHEW 324 MG PO STA (22:38)
[2025-02-27] MEDS: MAGNESIUM SULFATE / D5W 1 GM/100 ML BAG IV SCH (22:38)
--- NOTE | 2025-02-27 23:38 | History & Physical Report ---
Date of Service February 27, 2025 Assessment & Plan (1) Aphasia: Plan: Assessment and plan below following discussion of case with ED provider and reviewing patient history/pertinent normal/abnormal diagnostic test results. Transient aphasia symptoms associated with headache TIA (possible aspirin failure) versus complicated migraine hx PVD hypertension, slightly elevated DM2 on oral meds, suboptimal control as of recent globin A1c of 8.4 last month Hypercalcemia secondary to primary hyperparathyroidism, outpatient endocrinology consultation scheduled for next year hx thyroid nodule, outpatient thyroid ultrasound contemplated NILSA on CPAP ADD/mood disorder, stable on current regimen OBS Medical telemetry Neurochecks Add Plavix to aspirin aspirin for secondary stroke prevention Permissive hypertension until stroke ruled out MRI brain, TTE for stroke work-up Neurology consult Re: Transient aphasia Basal insulin, ISS BG goal 1 10-1 40, carb count coverage DVT prophylaxis with Lovenox subcu Full code Patient request for to be given updates regarding care. Ms. Brit Pinedo, contact #[phone]. Text document was generated using [employer] voice recognition software. It may contain grammatical or spelling errors. Kindly contact undersigned for clarification of any documentation item in question. History of Present Illness Chief Complaint: Vision problems, trouble getting words out Primary Care Provider: Jann Delgado DO History obtained from patient and records. Medical history significant for TIA, PVD, hypertension, DM2 on oral meds, primary hyperparathyroidism, thyroid nodule, NILSA on CPAP, migraine, ADD, mood disorder. Last confinement January 2021 for strokelike symptoms, TIA versus migraine. Neurology recommended dual antiplatelet therapy with aspirin and Plavix for 3 weeks followed by aspirin monotherapy thereafter. No predisposing arrhythmias on outpatient Holter monitor. Tonight, patient experienced left-sided headache associated with visual problems. Vision from right and left eyes seem disconnected as per patient. Different from past migraine attacks. Compliant with home medications and CPAP. No unusual stress. Patient later had trouble getting words out. Right arm felt funny. Patient symptoms resolved upon arrival at the ER. 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 Allergies Allergy/AdvReac Type Severity Reaction Status Date / Time No Known Allergies Allergy Verified 02/27/25 21:13 Home Medications Medication Instructions Recorded Confirmed Type lisinopril 10 mg tablet 10 mg PO QAM 06/13/18 02/27/25 History escitalopram oxalate 10 mg tablet 10 mg PO QAM 02/17/21 02/27/25 History aspirin 81 mg tablet,delayed 81 mg PO QAM #30 tabs 02/19/21 02/27/25 Rx release atorvastatin 40 mg tablet 40 mg PO QAM #30 tabs 02/19/21 02/27/25 Rx allopurinol 100 mg tablet 100 mg PO QAM 02/27/25 02/27/25 History cholecalciferol (vitamin D3) 50 50 mcg PO QAM 02/27/25 02/27/25 History mcg (2,000 unit) capsule (Vitamin D3) cyanocobalamin (vitamin B-12) 1,000 mcg sublingual QAM 02/27/25 02/27/25 History 1,000 mcg sublingual tablet empagliflozin 25 mg tablet 25 mg PO QAM 02/27/25 02/27/25 History (Jardiance) indomethacin 50 mg capsule 50 mg PO TID PRN gout flare 02/27/25 02/27/25 History metformin 500 mg tablet,extended 2,000 mg PO HS 02/27/25 02/27/25 History release 24 hr Past Med/Surg History Problem List (Updated 02/27/25 @ 23:27 by Zak Case DO) Stroke-like symptom (Acute) Headache (Acute) Aphasia (Acute) Altered mental status (Acute) Encounter for pre-operative examination Back abscess (Acute) Medical History (Updated 02/27/25 @ 23:27 by Zak Case DO) Thyroid nodule MONITORING Hyperlipidemia Diabetes mellitus, type 2 NIDDM Attention deficit disorder (ADD) Hypertension Gout Sleep apnea CPAP Surgical History History of tooth extraction History of colonoscopy Family History Father Family history of diabetes mellitus Grandmother (Paternal) Family history of diabetes mellitus Social History Smoking Status: Never smoker Second Hand Exposure: Yes; Do You Dip or Chew Tobacco: No; Hx Alcohol Use: Yes Alcohol type: beer Hx Substance Use: No Preferred Language: Tunisian Communication Ability: Effective Feed Inspection Supervisor Required: No Beliefs That Will Affect Care: None Current Living Situation: Spouse Other Information That Helps Us Care for You: No Feels Safe at Home: Yes Safety Concerns: Feels Safe At This Time Assistive Devices: CPAP and Glasses Review of Systems Review of Systems: As per HPI, all other systems reviewed and negative Physical Exam Physical Exam: GENERAL: Comfortable, pleasant, morbidly obese, no respiratory distress SKIN: Normal color, warm HEENT: Alopecia, [place] palpebral conjunctivae, no ptosis, moist buccal mucosa NECK : Supple, short neck, no tenderness CHEST : CTA, no tenderness HEART : RRR, no obvious murmurs ABDOMEN: distention, nontender EXTREMITIES : No LE swelling/tenderness, no other conspicuous deformities noted NEUROLOGIC : Coherent, no facial asymmetry, MMTS BUE/BLE 5/5, no other gross focality Results & Data Results & Data Vital Signs (Past 12 Hours) Vital Signs Temp Pulse Resp BP Pulse Ox O2 Del Method 02/27/25 22:42 98 H 19 95 02/27/25 22:33 105 H 20 94 02/27/25 22:30 132/72 02/27/25 22:27 101 H 17 92 02/27/25 22:15 141/75 H 02/27/25 22:12 99 H 14 93 02/27/25 22:03 99 H 20 93 02/27/25 22:00 119/76 02/27/25 21:54 104 H 19 93 02/27/25 21:51 103 H 24 95 02/27/25 21:45 142/81 H 02/27/25 21:45 104 H 18 95 02/27/25 21:30 152/86 H 02/27/25 21:26 102 H 02/27/25 21:24 98 H 18 93 02/27/25 21:20 139/74 02/27/25 21:18 103 H 21 94 02/27/25 21:15 94 Room Air 02/27/25 21:13 155/91 H 02/27/25 21:12 93 02/27/25 20:48 36.4 C L 100 H 16 140/75 91 Room Air Laboratory Results Laboratory Results WBC 12.18 K/ul (4.8-10.8) H 02/27/25 21:03 RBC 5.59 M/uL (4.70-6.10) 02/27/25 21:03 Hgb 15.8 g/dl (14.0-18.0) 02/27/25 21:03 POC Hgb 16.7 g/dl (14.0-18.0) 02/27/25 21:10 Hct 47.7 % (42.0-52.0) 02/27/25 21:03 POC Hct 49 % (42-52) 02/27/25 21:10 MCV 85.3 fL (80.0-100.0) 02/27/25 21: MCH 28.3 pg (25.0-34.0) 02/27/25 21:03 MCHC 33.1 g/dL (32.0-36.0) 02/27/25 21: RDW Std Deviation 45.9 fL (36.4-46.3) 02/27/25 21: RDW Coeff of Sp 14.7 % (11.5-14.5) H 02/27/25 21:03 Plt Count 274 K/uL (130-400) 02/27/25 21: MPV 11.8 fL (9.4-12.4) 02/27/25 21:03 Immature Gran % (Auto) 0.4 % 02/27/25 21:03 Neut % (Auto) 69.3 % 02/27/25 21:03 Lymph % (Auto) 18.6 % 02/27/25 21:03 Quay % (Auto) 8.0 % 02/27/25 21:03 Eos % (Auto) 3.0 % 02/27/25 21:03 Baso % (Auto) 0.7 % 02/27/25 21:03 Neut # (Auto) 8.43 K/uL (1.40-6.50) H 02/27/25 21:03 Lymph # (Auto) 2.26 K/uL (1.20-3.40) 02/27/25 21:03 Quay # (Auto) 0.98 K/uL (0.11-0.59) H 02/27/25 21:03 Eos # (Auto) 0.37 K/uL (0.00-0.50) 02/27/25 21:03 Baso # (Auto) 0.09 K/uL (0.00-0.20) 02/27/25 21:03 Immature Gran # (Auto) 0.05 K/uL (0.01-0.20) 02/27/25 21:03 PT 11.6 Seconds (9.0-12.0) 02/27/25 21:03 INR 1.1 (0.9-1.1) 02/27/25 21:03 APTT 28 Seconds (21-31) 02/27/25 21:03 PTT Ratio 1.0 02/27/25 21:03 POC Sodium 139 mmol/L (135-144) 02/27/25 21:10 Sodium 138 mmol/L (136-145) 02/27/25 21:03 POC Potassium 4.3 mmol/L (3.3-5.0) 02/27/25 21:10 Potassium 4.5 mmol/L (3.5-5.1) 02/27/25 21:03 POC Chloride 101 mmol/L (101-112) 02/27/25 21:10 Chloride 102 mmol/L (98-107) 02/27/25 21:03 Carbon Dioxide 27 mmol/L (21-32) 02/27/25 21:03 POC Total CO2 25 mmol/L (24-31) 02/27/25 21:10 Anion Gap 9 (3-11) 02/27/25 21:03 POC Anion Gap 18.0 mmol/L (16-25) 02/27/25 21:10 POC BUN 21 mg/dl (7-18) H 02/27/25 21:10 BUN 20 mg/dl (6-23) 02/27/25 21:03 Creatinine 1.00 mg/dl (0.6-1.4) 02/27/25 21:03 POC Creatinine 1.0 mg/dl (0.6-1.3) 02/27/25 21:10 Est Cr Clr Drug Dosing 96.4 ml/min 02/27/25 21:03 eGFR 84.05 02/27/25 21:03 BUN/Creatinine Ratio 20.0 (10-20) 02/27/25 21:03 Glucose 233 mg/dl (70-99(Fasting)) H 02/27/25 21:03 POC Glucose (other) 227 mg/dl (70-99) H 02/27/25 21:10 Calcium 10.8 mg/dl (8.6-10.3) H 02/27/25 21:03 POC Ioniz Calcium [place] 1.39 mmol/l (1.12-1.32) H 02/27/25 21:10 Phosphorus 2.7 mg/dl (2.5-4.9) 02/27/25 21:03 Magnesium 1.7 mg/dl (1.7-2.4) 02/27/25 21:03 Total Bilirubin 0.4 mg/dl (0.2-1.0) 02/27/25 21:03 AST 30 U/L (13-39) 02/27/25 21:03 ALT 17 U/L (7-52) 02/27/25 21:03 Alkaline Phosphatase 103 U/L (34-104) 02/27/25 21:03 Troponin I High Sens 6.2 pg/ml (0-20) 02/27/25 21:03 Total Protein 7.6 gm/dl (6.0-8.3) 02/27/25 21:03 Albumin 4.0 gm/dl (3.4-5.0) 02/27/25 21:03 Globulin 3.6 gm/dl (2.5-4.0) 02/27/25 21:03 Albumin/Globulin Ratio 1.1 (0.9-2) 02/27/25 21:03 Procalcitonin 0.02 ng/ml (0-0.5) 02/27/25 21:03 Blood Type O Positive 02/27/25 21:12 Antibody Screen NEGATIVE 02/27/25 21:[address] 02/27/25 20:55 CR Exam(s): CT HEAD Without Contrast EXAM: CT Head Without Intravenous Contrast CLINICAL HISTORY: Reason for exam: neuro deficit, acute stroke suspected. TECHNIQUE: Axial computed tomography images of the head/brain without intravenous contrast. CTDI is 35.65 mGy and DLP is 624.41 mGy-cm. Automated exposure control was utilized for the study. A dose lowering technique was utilized adhering to the principles of ALARA. Moderate motion/artifact COMPARISON: MRI brain 02/18/2021. FINDINGS: Brain: No mass effect or acute infarct. No acute hemorrhage. Mild atrophy and minimal, chronic, nonspecific white matter disease. No significant change, given differences in technique. Ventricles: No hydrocephalus or midline shift. Bones/joints: No acute finding. Soft tissues: No scalp hematoma. Visualized Sinuses: Clear. Mastoid air cells: No mastoid effusion. IMPRESSION: 1. Mild age-related findings. 2. No acute infarct, bleed, or acute intracranial abnormality. Communications: Call Doctor Stroke Electronically signed by: Lisa Rothman M.D. 02/27/25 21:34 PM Head CTA 02/27/25 20:55 CR Exam(s): CTA HEAD With Contrast IV Amt: 119 ml optiray 320 EXAM: CT Angiography Head With Intravenous Contrast CLINICAL HISTORY: Reason for exam: neuro deficit, acute stroke suspected. TECHNIQUE: Axial computed tomographic angiography images of the head with intravenous contrast. CTDI is 14.62 mGy and DLP is 588.98 mGy-cm. Automated exposure control was utilized for the study. A dose lowering technique was utilized adhering to the principles of ALARA. MIP reconstructed images were created and reviewed. Mild motion/artifact. CONTRAST: Patient received 119 ml optiray 320 of IV contrast COMPARISON: Head CT same day. FINDINGS: Right internal carotid artery: Patent. Right anterior cerebral artery: Patent. Right middle cerebral artery: Patent. Right posterior cerebral artery: Patent. Right vertebral artery: Patent. Left internal carotid artery: Patent. Left anterior cerebral artery: Patent. Left middle cerebral artery: Patent. Left posterior cerebral artery: Patent. Left vertebral artery: Patent. Basilar artery: Patent. Other: Mild atherosclerosis bilateral cavernous ICA, without significant stenosis. IMPRESSION: 1. No aneurysm or large vessel occlusion. Communications: Call Doctor Stroke Electronically signed by: Lisa Rothman M.D. 02/27/25 21:33 PM Neck CTA 02/27/25 20:55 CR Exam(s): CTA NECK With Contrast IV Amt: 119 ml optiray 320 EXAM: CT Angiography Neck With Intravenous Contrast CLINICAL HISTORY: Reason for exam: neuro deficit, acute stroke suspected. TECHNIQUE: Routine carotid CT angiography protocol was performed with intravenous contrast. NASCET criteria using the distal ICAs for comparison were used for evaluation of stenoses. CTDI is 16.61 mGy and DLP is 8.3 mGy-cm. Automated exposure control was utilized for the study. A dose lowering technique was utilized adhering to the principles of ALARA. MIP reconstructed images were created and reviewed. CONTRAST: Patient received 119 ml optiray 320 of IV contrast COMPARISON: None. FINDINGS: Right common carotid artery: Patent. Right internal carotid artery: Patent. Right vertebral artery: Patent. Slight right dominant system. Left common carotid artery: Patent. Left internal carotid artery: Patent. Left vertebral artery: Patent. Other: Mild atherosclerosis bilateral carotid bifurcation, without significant stenosis. IMPRESSION: 1. No dissection, occlusion, or significant stenosis. CAROTID STENOSIS REFERENCE USING NASCET CRITERIA: % ICA stenosis = (1 - narrowest ICA diameter/diameter of distal cervical ICA) x 100. Mild - <50% stenosis. Moderate - 50-69% stenosis. Severe - 70-94% stenosis. Near occlusion - 95-99% stenosis. Occluded - 100% stenosis. Communications: Call Doctor Stroke Electronically signed by: Lisa Rothman M.D. 02/27/25 21:33 PM Diagnostic Findings EKG as per my interpretation :Rate 105, sinus tachycardia LAD, LAFB, 1 AVB, septal infarct, no ischemia
[2025-02-28] MEDS ORDERED: PHARMACIST DISCHARGE MED REC CONSULT PRN (00:04)
[2025-02-28] MEDS ORDERED: PROMETHAZINE 12.5 MG/50.5 ML BAG IV PRN (00:05)
[2025-02-28] MEDS ORDERED: LORazepam 0.5 MG TAB PO PRN (00:05)
[2025-02-28] MEDS: CLOPIDOGREL BISULFATE 300 MG TAB PO STA (00:34)
[2025-02-28] MEDS: LANTUS PER UNIT CHARGE SQ SCH (00:35)
[2025-02-28] MEDS ORDERED: GLUCOSE 10 TAB/TUBE PO PRN (02:18)
[2025-02-28] MEDS ORDERED: GLUCOSE 40% GEL 15 GM TUBE PO PRN (02:18)
[2025-02-28] MEDS ORDERED: GLUCAGON FOR INJ 1 MG VIAL SQ PRN (02:18)
[2025-02-28] MEDS ORDERED: DEXTROSE 50% 50 ML SYRINGE IV PRN (02:18)
[2025-02-28] MEDS ORDERED: CARBOHYDRATES FOR HYPOGLYCEMIA PO PRN (02:18)
[2025-02-28] MEDS: SODIUM CHLORIDE 0.9% 1,000 ML IV ONE (02:48)
[2025-02-28] MEDS: INSULIN ASPART PER UNIT CHARGE SC SCH (03:13)
[2025-02-28 07:09] LABS: Hematocrit (blood only) 45.7 % (42.0-52.0); Hemoglobin 14.4 g/dl (14.0-18.0); Immature Granulocytes # (auto) 0.05 K/uL (0.01-0.20); Immature Granulocytes % (auto) 0.5 %; Mean Corpuscular Hemoglobin 27.3 pg (25.0-34.0); Mean Corpuscular Volume 86.7 fL (80.0-100.0); Platelet Count 237 K/uL (130-400); RDW Standard Deviation 47.1 fL (36.4-46.3); Red Blood Count 5.27 M/uL (4.70-6.10); White Blood Count 10.21 K/ul (4.8-10.8)
[2025-02-28 07:27] LABS: Anion Gap 5.0 (3-11); Blood Urea Nitrogen 20.0 mg/dl (6-23); Calcium 10.2 mg/dl (8.6-10.3); Carbon Dioxide 29.0 mmol/L (21-32); Chloride 105.0 mmol/L (98-107); Cholesterol 79.0 mg/dl (0-200); Creatinine Clr Calc Pharmacy 92.6 ml/min; Glucose 159.0 mg/dl (70-99(Fasting)); HDL Cholesterol 35.0 mg/dl; Potassium 4.5 mmol/L (3.5-5.1); Sodium 139.0 mmol/L (136-145); Triglycerides 61.0 mg/dl (0-150)
--- NOTE | 2025-02-28 07:33 | Magnetic Resonance Report ---
EXAM: MR brain wo con CLINICAL HISTORY: tia TECHNIQUE: Different pulse sequences were performed in different planes without contrast injection for the brain. Images were sent through PACS for interpretation. COMPARISON: 02/18/2021. FINDINGS: Brain Parenchyma: No evidence of acute infarction or hemorrhage. A few foci of altered signal are seen involving the bilateral fronto-parietal subcortical white matter, with no corresponding diffusion restriction. Bilateral deep white matter and periventricular thin sheets of bright T2 and FLAIR signal denote small arterial disease ([place] 1). Normal MRI appearance of the deep white matter and central saunders matter aggregates. No shift of midline structures. No intracerebral or extra-axial hematomas or masses. Anterior interhemispheric calcifications are noted. A partially empty sella is present. Ventricles and Sulci: Accentuated cortical sulci, Sylvian fissures, and extra-axial CSF spaces are associated with mild symmetrical dilatation of the supratentorial ventricular system. Brainstem and Cerebellum: Normal appearance of the brainstem and cerebellum without focal lesions or abnormal enhancement. Skull and Calvarium: No evidence of skull vault lesions or abnormal marrow signals within the calvarium. Paranasal sinuses and mastoid air cells: Bilateral maxillary and ethmoidal mild mucosal thickening is present. Nasal septum deviation is seen. Hypertrophied left inferior nasal turbinate is noted. Stable. Orbits: Normal MRI appearance of orbital structures, both globes, optic nerves, optic chiasm, optic tracts, and optic radiations. IMPRESSION: 1. No hyperacute or acute infarctions could be depicted. 2. Mild chronic microvascular ischemic angiopathy. 3. Age-related brain involutional changes. 4. No significant interval changes. Electronically signed by Esvin Ivey 02-28-2025 07:33 AM
[2025-02-28] MEDS: ENOXAPARIN INJ 40 MG/0.4 ML SYR SQ SCH (09:15)
--- NOTE | 2025-02-28 12:28 | Electrocardiogram Report ---
Test Reason : Blood Pressure : */* mmHG Vent. Rate : 104 BPM Atrial Rate : 104 BPM P-R Int : 222 ms QRS Dur : 76 ms QT Int : 316 ms P-R-T Axes : 79 -12 49 degrees QTcB Int : 415 ms Sinus tachycardia with 1st degree A-V block Low voltage QRS Possible Anterolateral infarct , age undetermined Abnormal ECG When compared with ECG of 17-Feb-2021 20:50, Borderline criteria for Anterior infarct are now Present Borderline criteria for Anterolateral infarct are now Present Confirmed by Carlos Coleman ([id number]) on 02/28/2025 12:28:23 PM Referred By: REFERRED SELF Confirmed By: Carlos Coleman
--- NOTE | 2025-02-28 14:23 | Neurology Consultation ---
Date of Consultation February 28, 2025 Assessment & Plan (1) Stroke-like symptom: Suspect TIA Recommend continued stroke/TIA workup Echocardiogram as part of complete stroke workup Continue frequent neurological assessments Obtain stat CT brain without contrast for any acute neurological decline Continue to monitor/control blood pressure & blood glucose Continue to monitor telemetry closely Recommend ZioPatch at DC if no evidence of arrhythmia during inpatient monitoring Continue to monitor renal and hepatic function, keep euvolemic Metabolic workup should include hgbA1c, fasting lipids Recommend DAPT for 3 weeks= 75 mg Plavix & 81 mg ASA EC daily x 21 days then continue 81mg ASA daily as monotherapy Recommend high dose statin therapy indefinitely if tolerated- recommend increase current 40mg dose to 60mg PO daily with goal of 80mg PO daily Ok from neurology perspective for VTE prophylaxis PT/OT/SLT to eval and treat Continue CPAP QHS Follow up with neurology stroke clinic 4-6 weeks Telehealth Consultation Telehealth Information Telehealth Information: I performed this visit using a real-time telehealth connection between my location and the patients location ([facility]). After connecting through interactive tele-video, patient was identified by name and date of and/or wristband check.Patient (or authorized healthcare circulation sales representative) was informed that this was a telemedicine visit and it was being conducted confidentially over secure lines. My office door was closed and no one else was present in the room with me.Patient (or authorized healthcare circulation sales representative) provided consent to proceed with the visit, expressed an understanding of privacy and security of the telemedicine visit, and gave permission to have a hospital circulation sales representative in the room in order to assist with the visit and to conduct portions of the visit, as needed. I informed the patient (or authorized healthcare circulation sales representative) that I reviewed their record and presented the opportunity for them to ask any questions regarding the visit today. The patient agreed to participate. History of Present Illness Reason for Consultation: Stroke like symptoms Requesting Physician: Dr Evans Attending Physician: Siri Evans MD History of Present Illness 65yo right handed male with significant stroke risk factors including morbid obesity NILSA, HTN, PVD, migraine and previous TIA presented with reported 1- 1&1/2 hours of right sided weakness paresthesia and aphasia. He reports he was sitting at computer typing and began to feel like the right side of his body was not connected. States it would not readily do what he wanted it to do. He went upstairs and tried to go to bed but then went to his again and could not express himself/was having reported word finding difficulty so he came to the ER. He has undergone stroke imaging including CT brain without contrast, personally reviewed, revealing no overt evidence of hemorrhage. CT angiographic studies of head and neck, also personally reviewed, reveal no overt evidence of large vessel occlusion or significant/flow limiting stenosis. He has undergone MRI brain without overt evidence of acute intracranial pathology. I have performed televideo consultation. He is alert & oriented; able to answer all questions appropriately, name objects on televideo monitor, repeat phrases and perform complex/embedded commands without deficit. Neurological exam is non lateralizing/nonfocal in terms of motor strength and coordination. He has a hx of migraine but reports no features consistent with his migraines. No reported cephalgia or cervicalgia at this time. Denies chest pain/palpitations or shortness of breath. No reported changes in vision hearing dizziness syncope seizure like activity or paresthesia. Denies recent fevers chills nausea vomiting changes in bowels or bladder. Denies recent medication changes, recent illness or sick contacts, no reported recent travel. Reports consistent usage of CPAP QHS. Allergies Allergy/AdvReac Type Severity Reaction Status Date / Time No Known Allergies Allergy Verified 02/27/25 21:13 Home Medications Medication Instructions Recorded Confirmed Type lisinopril 10 mg tablet 10 mg PO QAM 06/13/18 02/27/25 History escitalopram oxalate 10 mg tablet 10 mg PO QAM 02/17/21 02/27/25 History aspirin 81 mg tablet,delayed 81 mg PO QAM #30 tabs 02/19/21 02/27/25 Rx release atorvastatin 40 mg tablet 40 mg PO QAM #30 tabs 02/19/21 02/27/25 Rx allopurinol 100 mg tablet 100 mg PO QAM 02/27/25 02/27/25 History cholecalciferol (vitamin D3) 50 50 mcg PO QAM 02/27/25 02/27/25 History mcg (2,000 unit) capsule (Vitamin D3) cyanocobalamin (vitamin B-12) 1,000 mcg sublingual QAM 02/27/25 02/27/25 History 1,000 mcg sublingual tablet empagliflozin 25 mg tablet 25 mg PO QAM 02/27/25 02/27/25 History (Jardiance) indomethacin 50 mg capsule 50 mg PO TID PRN gout flare 02/27/25 02/27/25 History metformin 500 mg tablet,extended 2,000 mg PO HS 02/27/25 02/27/25 History release 24 hr clopidogrel 75 mg tablet 75 mg PO QAM 20 days #20 tabs 02/28/25 Rx Patient History Medical History (Updated 02/27/25 @ 23:27 by Zak Case, DO) Thyroid nodule MONITORING Hyperlipidemia Diabetes mellitus, type 2 NIDDM Attention deficit disorder (ADD) Hypertension Gout Sleep apnea CPAP Surgical History History of tooth extraction History of colonoscopy Family History Father Family history of diabetes mellitus Grandmother (Paternal) Family history of diabetes mellitus Social History Smoking Status: Never smoker Second Hand Exposure: Yes; Do You Dip or Chew Tobacco: No; Hx Alcohol Use: Yes Alcohol type: beer Hx Substance Use: No Preferred Language: Somali Communication Ability: Effective [employer] Tech Required: No Beliefs That Will Affect Care: None Current Living Situation: Spouse Other Information That Helps Us Care for You: No Feels Safe at Home: Yes Safety Concerns: Feels Safe At This Time Assistive Devices: None Physical Exam Neurological Examination: Mental Status: Awake and alert. Oriented to person, place, and time. Fluency naming repetition and comprehension appear grossly intact. Affect remains appropriate. CN testing: I: Deferred II: Reports no changes in visual acuity III/IV/: No evidence of gaze preference, hippus, nystagmus or roving eye movements V: Facial sensation reportedly grossly intact to light touch bilaterally VII: Facial movements appear without evidence of asymmetry VIII: Hearing appears grossly intact to loud voice bilaterally IX/X: Palate is unable to be accurately visualized XI: Shoulder shrug appears symmetric/ grossly intact bilaterally XII: Tongue protrudes midline without evidence of biting Motor exam: Strength appears grossly intact in all extremities Tone: Unable to accurately assess via telemedicine Sensory: Sensation is reportedly grossly intact throughout Coordination: No apparent evidence of dysmetria or dysdiadochokinesia Reflexes: Unable to accurately assess via telemedicine Gait: Deferred Results & Data Vital Signs (Past 12 Hours) Vital Signs Temp Pulse Pulse Resp BP BP Pulse Ox 02/28/25 12:27 36.8 C 70 17 123/83 94 02/28/25 08:00 36.5 C 71 18 122/71 95 02/28/25 07:13 78 02/28/25 02:18 02/28/25 02:18 36.8 C 90 18 117/75 93 02/28/25 02:15 88 Pulse Ox O2 Del Method O2 Del Method 02/28/25 12:27 Room Air 02/28/25 08:00 Room Air 02/28/25 07:13 02/28/25 02:18 93 Room Air 02/28/25 02:18 Room Air 02/28/25 02:15 Laboratory Results Abnormal lab results 02/27/25 02/27/25 02/28/25 Range/Units 21:03 21:10 00:33 WBC 12.18 H (4.8-10.8) K/ul MCHC (32.0-36.0) g/dL RDW Std Deviation (36.4-46.3) fL RDW Coeff of Sp 14.7 H (11.5-14.5) % Neut # (Auto) 8.43 H (1.40-6.50) K/uL [place] # (Auto) 0.98 H (0.11-0.59) K/uL POC BUN 21 H (7-18) mg/dl Glucose 233 H (70-99(Fasting)) mg/dl POC Glucose 231 H (70-99) mg/dl POC Glucose (other) 227 H (70-99) mg/dl Calcium 10.8 H (8.6-10.3) mg/dl POC Ioniz Calcium [place] 1.39 H (1.12-1.32) mmol/l 02/28/25 02/28/25 02/28/25 Range/Units 02:51 06:10 07:33 WBC (4.8-10.8) K/ul MCHC 31.5 L (32.0-36.0) g/dL RDW Std Deviation 47.1 H (36.4-46.3) fL RDW Coeff of Sp 14.8 H (11.5-14.5) % Neut # (Auto) (1.40-6.50) K/uL [place] # (Auto) 0.88 H (0.11-0.59) K/uL POC BUN (7-18) mg/dl Glucose 159 H (70-99(Fasting)) mg/dl POC Glucose 191 H 156 H (70-99) mg/dl POC Glucose (other) (70-99) mg/dl Calcium (8.6-10.3) mg/dl POC Ioniz Calcium [place] (1.12-1.32) mmol/l 02/28/25 Range/Units 12:13 WBC (4.8-10.8) K/ul MCHC (32.0-36.0) g/dL RDW Std Deviation (36.4-46.3) fL RDW Coeff of Sp (11.5-14.5) % Neut # (Auto) (1.40-6.50) K/uL [place] # (Auto) (0.11-0.59) K/uL POC BUN (7-18) mg/dl Glucose (70-99(Fasting)) mg/dl POC Glucose 196 H (70-99) mg/dl POC Glucose (other) (70-99) mg/dl Calcium (8.6-10.3) mg/dl POC Ioniz Calcium [place] (1.12-1.32) mmol/l Diagnostic Findings Head CT 02/27/25 20:55 CR Exam(s): CT HEAD Without Contrast EXAM: CT Head Without Intravenous Contrast CLINICAL HISTORY: Reason for exam: neuro deficit, acute stroke suspected. TECHNIQUE: Axial computed tomography images of the head/brain without intravenous contrast. CTDI is 35.65 mGy and DLP is 624.41 mGy-cm. Automated exposure control was utilized for the study. A dose lowering technique was utilized adhering to the principles of ALARA. Moderate motion/artifact COMPARISON: MRI brain 02/18/2021. FINDINGS: Brain: No mass effect or acute infarct. No acute hemorrhage. Mild atrophy and minimal, chronic, nonspecific white matter disease. No significant change, given differences in technique. Ventricles: No hydrocephalus or midline shift. Bones/joints: No acute finding. Soft tissues: No scalp hematoma. Visualized Sinuses: Clear. Mastoid air cells: No mastoid effusion. IMPRESSION: 1. Mild age-related findings. 2. No acute infarct, bleed, or acute intracranial abnormality. Communications: Call Doctor Stroke Electronically signed by: Lisa Rothman M.D. 02/27/25 21:34 PM Head CTA 02/27/25 20:55 CR Exam(s): CTA HEAD With Contrast IV Amt: 119 ml optiray 320 EXAM: CT Angiography Head With Intravenous Contrast CLINICAL HISTORY: Reason for exam: neuro deficit, acute stroke suspected. TECHNIQUE: Axial computed tomographic angiography images of the head with intravenous contrast. CTDI is 14.62 mGy and DLP is 588.98 mGy-cm. Automated exposure control was utilized for the study. A dose lowering technique was utilized adhering to the principles of ALARA. MIP reconstructed images were created and reviewed. Mild motion/artifact. CONTRAST: Patient received 119 ml optiray 320 of IV contrast COMPARISON: Head CT same day. FINDINGS: Right internal carotid artery: Patent. Right anterior cerebral artery: Patent. Right middle cerebral artery: Patent. Right posterior cerebral artery: Patent. Right vertebral artery: Patent. Left internal carotid artery: Patent. Left anterior cerebral artery: Patent. Left middle cerebral artery: Patent. Left posterior cerebral artery: Patent. Left vertebral artery: Patent. Basilar artery: Patent. Other: Mild atherosclerosis bilateral cavernous ICA, without significant stenosis. IMPRESSION: 1. No aneurysm or large vessel occlusion. Communications: Call Doctor Stroke Electronically signed by: Lisa Rothman M.D. 02/27/25 21:33 PM Neck CTA 02/27/25 20:55 CR Exam(s): CTA NECK With Contrast IV Amt: 119 ml optiray 320 EXAM: CT Angiography Neck With Intravenous Contrast CLINICAL HISTORY: Reason for exam: neuro deficit, acute stroke suspected. TECHNIQUE: Routine carotid CT angiography protocol was performed with intravenous contrast. NASCET criteria using the distal ICAs for comparison were used for evaluation of stenoses. CTDI is 16.61 mGy and DLP is 8.3 mGy-cm. Automated exposure control was utilized for the study. A dose lowering technique was utilized adhering to the principles of ALARA. MIP reconstructed images were created and reviewed. CONTRAST: Patient received 119 ml optiray 320 of IV contrast COMPARISON: None. FINDINGS: Right common carotid artery: Patent. Right internal carotid artery: Patent. Right vertebral artery: Patent. Slight right dominant system. Left common carotid artery: Patent. Left internal carotid artery: Patent. Left vertebral artery: Patent. Other: Mild atherosclerosis bilateral carotid bifurcation, without significant stenosis. IMPRESSION: 1. No dissection, occlusion, or significant stenosis. CAROTID STENOSIS REFERENCE USING NASCET CRITERIA: % ICA stenosis = (1 - narrowest ICA diameter/diameter of distal cervical ICA) x 100. Mild - <50% stenosis. Moderate - 50-69% stenosis. Severe - 70-94% stenosis. Near occlusion - 95-99% stenosis. Occluded - 100% stenosis. Communications: Call Doctor Stroke Electronically signed by: Lisa Rothman M.D. 02/27/25 21:33 PM Brain MRI 02/28/25 00:04 EXAM: MR brain wo con CLINICAL HISTORY: tia TECHNIQUE: Different pulse sequences were performed in different planes without contrast injection for the brain. Images were sent through PACS for interpretation. COMPARISON: 02/18/2021. FINDINGS: Brain Parenchyma: No evidence of acute infarction or hemorrhage. A few foci of altered signal are seen involving the bilateral fronto-parietal subcortical white matter, with no corresponding diffusion restriction. Bilateral deep white matter and periventricular thin sheets of bright T2 and FLAIR signal denote small arterial disease ([place] 1). Normal MRI appearance of the deep white matter and central saunders matter aggregates. No shift of midline structures. No intracerebral or extra-axial hematomas or masses. Anterior interhemispheric calcifications are noted. A partially empty sella is present. Ventricles and Sulci: Accentuated cortical sulci, Sylvian fissures, and extra-axial CSF spaces are associated with mild symmetrical dilatation of the supratentorial ventricular system. Brainstem and Cerebellum: Normal appearance of the brainstem and cerebellum without focal lesions or abnormal enhancement. Skull and Calvarium: No evidence of skull vault lesions or abnormal marrow signals within the calvarium. Paranasal sinuses and mastoid air cells: Bilateral maxillary and ethmoidal mild mucosal thickening is present. Nasal septum deviation is seen. Hypertrophied left inferior nasal turbinate is noted. Stable. Orbits: Normal MRI appearance of orbital structures, both globes, optic nerves, optic chiasm, optic tracts, and optic radiations. IMPRESSION: 1. No hyperacute or acute infarctions could be depicted. 2. Mild chronic microvascular ischemic angiopathy. 3. Age-related brain involutional changes. 4. No significant interval changes. Electronically signed by Esvin Ivey 02-28-2025 07:33 AM Medications Administered Home Medications Medication Instructions Recorded Confirmed Last Taken lisinopril 10 mg tablet 10 mg PO QAM 06/13/18 02/27/25 02/27/25 escitalopram oxalate 10 mg tablet 10 mg PO QAM 02/17/21 02/27/25 02/27/25 aspirin 81 mg tablet,delayed 81 mg PO QAM #30 tabs 02/19/21 02/27/25 02/27/25 release atorvastatin 40 mg tablet 40 mg PO QAM #30 tabs 02/19/21 02/27/25 02/27/25 allopurinol 100 mg tablet 100 mg PO QAM 02/27/25 02/27/25 02/27/25 cholecalciferol (vitamin D3) 50 50 mcg PO QAM 02/27/25 02/27/25 02/27/25 mcg (2,000 unit) capsule (Vitamin D3) cyanocobalamin (vitamin B-12) 1,000 mcg sublingual QAM 02/27/25 02/27/25 02/27/25 1,000 mcg sublingual tablet empagliflozin 25 mg tablet 25 mg PO QAM 02/27/25 02/27/25 02/27/25 (Jardiance) indomethacin 50 mg capsule 50 mg PO TID PRN gout flare 02/27/25 02/27/25 Unknown metformin 500 mg tablet,extended 2,000 mg PO HS 02/27/25 02/27/25 02/27/25 release 24 hr X2 DOSES TODAY clopidogrel 75 mg tablet 75 mg PO QAM 20 days #20 tabs 02/28/25 Unknown Active Medications Generic Name Dose Route Start Last Admin Trade Name Sukumar PRN Reason Stop Dose Admin Enoxaparin Sodium 40 mg 02/28/25 09:00 02/28/25 09:15 Enoxaparin Inj 40 Mg/0.4 Ml Syr SQ 03/30/25 08:59 40 mg QAM SHIMON Administration Insulin Aspart 0 units 02/28/25 02:18 02/28/25 13:28 Insulin Aspart Per Unit Charge SC 03/30/25 02:17 5 units ACHS SHIMON Administration Insulin Glargine 5 units 02/28/25 00:10 02/28/25 00:35 Lantus Per Unit Charge SQ 03/30/25 00:09 5 units HS SHIMON Administration
--- NOTE | 2025-02-28 14:36 | Discharge Summary ---
Discharge Summary Date of Service February 28, 2025 Principal Dx & Hospital Course #1 = Principal Diagnosis (1) Aphasia: Mr. Pinedo is a 65 year old gentleman with history of TIA, PVD, hypertension, DM2 on oral meds, primary hyperparathyroidism, thyroid nodule, NILSA on CPAP, migraine, ADD, mood disorder admitted for TIA. MRI was negative. Neurology evaluated patient and recommends DAPT for 21 days and ziopatch. On day of discharge, patient was ambulating independently and without further neurologic deficits. Assessment and plan below following discussion of case with ED provider and reviewing patient history/pertinent normal/abnormal diagnostic test results. #Transient aphasia symptoms associated with headache #TIA (possible aspirin failure) Echocardiogram obtained, pending read Continue frequent neurological assessments Recommend ZioPatch at DC if no evidence of arrhythmia during inpatient monitoring LDL 79, A1C pending Recommend DAPT for 3 weeks= 75 mg Plavix & 81 mg ASA EC daily x 21 days then continue 81mg ASA daily as monotherapy Increased atorvastatin 80mg daily Continue CPAP QHS Follow up with neurology stroke clinic 4-6 weeks #NILSA continue CPAP #DM2 on oral meds, suboptimal control as of recent globin A1c of 8.4 last month A1C pending follow up with PCP for better control #Hypercalcemia secondary to primary hyperparathyroidism, outpatient endocrinology consultation scheduled for next year #hx thyroid nodule, outpatient thyroid ultrasound contemplated encourage OP follow up #ADD/mood disorder, stable on current regimen Notes For Next Care Provider [place] recommended Neurology follow up in 4-6 weeks Recommend follow up/titration of diabetes regimen Medication Changes From Visit Plavix 75mg daily x 20 tablets Increased atorvastatin 80mg daily Admission HPI Per Admitting Provider History obtained from patient and records. Medical history significant for TIA, PVD, hypertension, DM2 on oral meds, primary hyperparathyroidism, thyroid nodule, NILSA on CPAP, migraine, ADD, mood disorder. Last confinement January 2021 for strokelike symptoms, TIA versus migraine. Neurology recommended dual antiplatelet therapy with aspirin and Plavix for 3 weeks followed by aspirin monotherapy thereafter. No predisposing arrhythmias on outpatient Holter monitor. Tonight, patient experienced left-sided headache associated with visual problems. Vision from right and left eyes seem disconnected as per patient. Different from past migraine attacks. Compliant with home medications and CPAP. No unusual stress. Patient later had trouble getting words out. Right arm felt funny. Patient symptoms resolved upon arrival at the ER. 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 Admission Exam Per Admitting Provider GENERAL: Comfortable, pleasant, morbidly obese, no respiratory distress SKIN: Normal color, warm HEENT: Alopecia, Fidelis palpebral conjunctivae, no ptosis, moist buccal mucosa NECK : Supple, short neck, no tenderness CHEST : CTA, no tenderness HEART : RRR, no obvious murmurs ABDOMEN: distention, nontender EXTREMITIES : No LE swelling/tenderness, no other conspicuous deformities noted NEUROLOGIC : Coherent, no facial asymmetry, no other gross focality Discharge Exam Constitutional WD/WN, vitals as above Respiratory normal respiratory effort, lungs clear to auscultation Cardiovascular RRR, no murmur, no edema Neurologic PERRL, EOMI, accommodation nl, no face palsy, no dysarthria Updated Medication List Medication Instructions Recorded Confirmed Type lisinopril 10 mg tablet 10 mg PO QAM 06/13/18 02/27/25 History escitalopram oxalate 10 mg tablet 10 mg PO QAM 02/17/21 02/27/25 History aspirin 81 mg tablet,delayed 81 mg PO QAM #30 tabs 02/19/21 02/27/25 Rx release allopurinol 100 mg tablet 100 mg PO QAM 02/27/25 02/27/25 History cholecalciferol (vitamin D3) 50 50 mcg PO QAM 02/27/25 02/27/25 History mcg (2,000 unit) capsule (Vitamin D3) cyanocobalamin (vitamin B-12) 1,000 mcg sublingual QAM 02/27/25 02/27/25 History 1,000 mcg sublingual tablet empagliflozin 25 mg tablet 25 mg PO QAM 02/27/25 02/27/25 History (Jardiance) indomethacin 50 mg capsule 50 mg PO TID PRN gout flare 02/27/25 02/27/25 History metformin 500 mg tablet,extended 2,000 mg PO HS 02/27/25 02/27/25 History release 24 hr atorvastatin 80 mg tablet 80 mg PO DAILY #30 tabs 02/28/25 Rx clopidogrel 75 mg tablet 75 mg PO QAM 20 days #20 tabs 02/28/25 Rx Hospital Stay Data Consultations 02/27/25 21:51 ED Decision to Admit Stat 02/28/25 02:18 Consult Neurology Routine Diagnostic Imagining Performed 02/27/25 20:55 CT angio head w con Stat CT angio neck with con Stat CT head/brain wo con Stat 02/28/25 00:04 MR brain wo con Routine Pending Results Patient Have Any Pending Studies at Discharge: No Discharge Instructions Given to Patient (Per Discharging Provider) You have been diagnosed with a transient ischemic attack (TIA). A TIA is also known as a mini-stroke. This happens when blood could not reach part of your brain for a short period of time. Unlike a stroke, a TIA does not usually cause lasting damage. If you think you are having symptoms of a TIA or stroke,get medical help right away.Do this even if your symptoms go away. Prevention * Take your medicines exactly as directed. Dont skip doses. * You will continue a daily baby aspirin daily * Learn to take your blood pressure. Write down the numbers and tell your doctor. * Continue your cholesterol medication daily * You will start Plavix 75 mg (clopidogrel) daily for 20 more days starting tomorrow morning Make these lifestyle changes: * Limit your alcohol.Don't have more than 2 drinks a day * Keep a healthy weight.Get help to lose any extra pounds. If you are overweight, your doctor will work with you to lose weight and lower your body mass index (BMI) to a normal or near-normal level. Making diet changes and increasing physical activity can help. * Start an exercise program.Ask your doctor how to get started and how much activity you should try to get on a daily or weekly basis. You can benefit from simple activities, such as walking or gardening. * Learn ways to manage your stress.There are many methods to manage stress. They can help you deal with stress in your home and work life. You may also need to change what you eat. Your doctor may refer you to a registered dietitian for help with diet changes. These changes may include: * Eating less fat and cholesterol. * Having less salt (sodium), especially if you have high blood pressure. * Eating more fresh vegetables and fruits. * Eating lean proteins, such as fish, poultry, and legumes (beans and peas). * Eating less red meat and processed meats. * Choosing low-fat dairy products. * Using vegetable and nut oils in small amounts. * Limiting sweet and processed foods, such as chips, cookies, and baked goods. To cut back on sodium: * Limit the amount of canned, dried, packaged, and fast foods you eat. * Dont add salt to your food. * Season foods with herbs instead of salt when you cook. Follow-up care If you are taking certain medicines, you may need blood tests to check for progress or problems. Have blood tests as often as prescribed by your doctor. [id number] if: * You have weakness, tingling, or loss of feeling on 1 side of your face or body. * You have sudden double vision, or trouble seeing in 1 or both eyes. * You have sudden trouble talking, or slurring your speech. * You have trouble understanding other people speaking. * You have sudden, severe headache. * You have dizziness, loss of balance, a spinning feeling, or a sense of falling. * You have blackouts. * You have seizures. B.E.F.A.S.T.is an easy way to remember the signs of stroke. When you see these signs, you know that you need to [id number]. B.E. F.A.S.T.stands for: * Bis forbalance.Sudden loss of balance or coordination. * Eis foreyes.Vision changes in 1 or both eyes. * Fis forface drooping.One side of the face is drooping or numb. When the person smiles, the smile is uneven. * Ais forarm weakness.One arm is weak or numb. When the person lifts both arms at the same time, 1 arm may drift downward. * Sis forspeech difficulty.You may notice slurred speech or trouble speaking. The person can't repeat a simple sentence correctly when asked. * Tis fortime to call 911. If someone shows any of these symptoms, even if they go away, [id number]. Make note of the time the symptoms first appeared. Please follow up with Neurology in 4-6 weeks Total Time Total Time Spent Total Time Spent (In Minutes): 55
[2025-02-28 15:15] VITALS: PULSE 74; RESP 16; TEMP 98.1; O2SAT 96
[2025-02-28] MEDS ORDERED: STROKE PATIENT DISCHARGE STA (15:43)
[2025-02-28 16:05] LABS: Hemoglobin A1C 8.5 % (4.5-5.6)
[2025-02-28 16:38] VITALS: BP 122/71
[2025-03-01] MEDS ORDERED: CLOPIDOGREL BISULFATE 75 MG TAB PO SCH (09:00)
--- NOTE | 2025-03-04 14:01 | Pharmacy Report ---
Pharmacist Stroke Counseling - Date of Service March 04, 2025 - Scope: Pharmacy has been consulted to provide medication discharge counseling for this patient admitted with transient ischemic attack as per the Pharmacist Discharge Counseling for Stroke Patients Protocol. - Medications on Discharge: Home Medications Medication Instructions Recorded Confirmed lisinopril 10 mg tablet 10 mg PO QAM 06/13/18 02/27/25 escitalopram oxalate 10 mg tablet 10 mg PO QAM 02/17/21 02/27/25 allopurinol 100 mg tablet 100 mg PO QAM 02/27/25 02/27/25 cholecalciferol (vitamin D3) 50 50 mcg PO QAM 02/27/25 02/27/25 mcg (2,000 unit) capsule (Vitamin D3) cyanocobalamin (vitamin B-12) 1,000 mcg sublingual QAM 02/27/25 02/27/25 1,000 mcg sublingual tablet empagliflozin 25 mg tablet 25 mg PO QAM 02/27/25 02/27/25 (Jardiance) indomethacin 50 mg capsule 50 mg PO TID PRN gout flare 02/27/25 02/27/25 metformin 500 mg tablet,extended 2,000 mg PO HS 02/27/25 02/27/25 release 24 hr New Rx's Medication Instructions Recorded aspirin 81 mg tablet,delayed 81 mg PO QAM #30 tabs 02/19/21 release atorvastatin 80 mg tablet 80 mg PO DAILY #30 tabs 02/28/25 clopidogrel 75 mg tablet 75 mg PO QAM 20 days #20 tabs 02/28/25 - Action: The above medications, specifically ones for stroke treatment/prophylaxis, have been reviewed in detail with the patient and/or patient physician relations representative(s) prior to discharge. This includes indication, common adverse reactions, drug interactions, and medication administration. Medication counseling has been employed using the teach-back method to ensure understanding. - Outcome: The patient and/or patient physician relations representative(s) have demonstrated understanding of the medications. Additional comments: - Spoke with patient via telephone this afternoon for stroke discharge counseling. - Patient able to hand picker increased lipitor dose and plavix from pharmacy. Instructed that he can take 2 of the 40 mg lipitor tabs if he has any on hand so they don't go to waste prior to starting the 80 mg tabs. Only prescribed 20 tabs of the Plavix so he knows to take until they are gone. - Was already on Aspirin 81 mg daily prior to admit. - Follow up with PCP coming up. Having some calf soreness, instructed to discuss with PCP in case of statin induced myopathy. Thank you for allowing pharmacy to be involved in the care of this patient. Please call [phone] with any additional questions
== END 2025-02-28 17:45 | disposition home or self-care (01) ==
LOC: 2N 20:47 → ED 20:47 → 2N 02-28 01:11